=== PATIENT | male | born 1945 | race Caucasian/White ===

== ENCOUNTER 2019-03-11 17:06 | Inpatient (IN) | payer MEDICARE ==
[~2019-03-11] VITALS: Ht 180.3 cm; Wt 63.5 kg
[2019-03-11 17:07] VITALS: BP 137/86
--- NOTE | 2019-03-11 17:07 | NUR ---
ED Nurse Note: Patient nigel STONER from home c/o uncomfortability with his catracts, states that he does have a memorial adviser appointment on thursday but wanted to come today to relieve some of his questions. complains of no pain at this time, visual acuity unable to do so, states that he is unable to see within 20 feet however can picture colors and track staff. patient is alert and oriented x4. states that he is a type 2 diabetic however has not taken his meds for 1 year
[2019-03-11 17:58] LABS: APPEARANCE,URINE CLEAR; BILIRUBIN, URINE NEGATIVE (NEGATIVE); COLOR,URINE PALE YELLOW; GLUCOSE, URINE (UA) NEGATIVE (NEGATIVE); KETONES,URINE NEGATIVE (NEGATIVE); LEUKOCYTE ESTERASE ,URINE 1+ (NEGATIVE); NITRITE,URINE NEGATIVE (NEGATIVE); PH,URINE 7 (4.5-8.0); PROTEIN,URINE 2+ (NEGATIVE); UROBILINOGEN,URINE 1 MG/DL (0.0-1.0)
[2019-03-11 18:01] LABS: BASOPHILS % (AUTO) 0.6 % (0.0-2.0); EOSINOPHILS % (AUTO) 1.5 % (0.0-3.0); HEMOGLOBIN 14.1 G/DL (14.2-18.0); LYMPHOCYTES % (AUTO) 30.6 % (20.0-45.0); MEAN CORPUSCULAR VOLUME 90 FL (80-99); MONOCYTES % (AUTO) 8.7 % (1.0-10.0); NEUTROPHILS % (AUTO) 58.6 % (45.0-75.0); PLATELET COUNT 142 K/UL (150-450); RED BLOOD COUNT 4.46 M/UL (4.70-6.10); RED CELL DISTRIBUTION WIDTH 11.1 % (11.6-14.8); WHITE BLOOD COUNT 11.2 K/UL (4.8-10.8)
[2019-03-11 18:10] LABS: ANION GAP 14 mmol/L (5-15); BLOOD UREA NITROGEN 31 mg/dL (7-18); CALCIUM 7.8 MG/DL (8.5-10.1); CARBON DIOXIDE 24 MMOL/L (21-32); CHLORIDE 109 MMOL/L (98-107); CREATININE 2.4 MG/DL (0.55-1.30); POTASSIUM 4.3 MMOL/L (3.5-5.1); SODIUM 147 MMOL/L (136-145)
[2019-03-11 18:20] LABS: ALANINE AMINOTRANSFERASE 48 U/L (12-78); ALBUMIN 3.6 G/DL (3.4-5.0); ALBUMIN/GLOBULIN RATIO 1.1 (1.0-2.7); ALKALINE PHOSPHATASE 219 U/L (46-116); ASPARTATE AMINO TRANSFERASE 38 U/L (15-37); BILIRUBIN,TOTAL 0.6 MG/DL (0.2-1.0)
--- NOTE | 2019-03-11 18:26 | Diagnostic Imaging Report ---
History: H/A Exam: CT HEAD Without Contrast Technique more: CTDI is 70.38 mGy and DLP is 1509 mGy-cm. Technique more: One or more of the following dose reduction techniques were used: automated exposure control, adjustment of the mA and/or kV according to patient size, use of iterative reconstruction technique. Comparison: None available FINDINGS: No intracranial hemorrhage, mass effect or CT evidence of acute infarct. The ventricles are within limits and midline. The visualized paranasal sinuses, mastoids and orbits appear within limits. IMPRESSION: No intracranial hemorrhage, mass effect or CT evidence of acute infarct.
[2019-03-11] MEDS ORDERED: NKM (18:41)
--- NOTE | 2019-03-11 19:13 | NUR ---
HAND-OFF: Report given to LEI Agarwal.
--- NOTE | 2019-03-11 19:22 | Emergency Room Report ---
History of Present Illness General Chief Complaint: Eye Problems Source: Patient Present Illness HPI 73-year-old male presents ED for evaluation. Brought in by EMS. States that he has had sudden decrease in his visual acuity over the last 10 days. decreasing visual acuity over the last 10 days. Has cataracts. Is scheduled for surgery consultation next week. States that because of his vision he has been bumping around in his apartment and falling. States very often he is in bed for days. Lives alone. Denies any headache. Denies any eye pain. Denies any chest pain or shortness of breath. No other aggravating relieving factors. Denies any other associated symptoms Allergies: Coded Allergies: No Known Allergies (Unverified , 03/11/19) Patient History Past Medical History: DM, other - cataracts Past Surgical History: none Pertinent Family History: none Social History: Denies: smoking, alcohol use, drug use Immunizations: UTD Reviewed Nursing Documentation: PMH: Agreed; PSxH: Agreed Nursing Documentation-PMH Past Medical History: No History, Except For Hx Diabetes: Yes - Type 2 diabetes Review of Systems All Other Systems: negative except mentioned in HPI Physical Exam Vital Signs Date Time Temp Pulse Resp B/P (MAP) Pulse Ox O2 Delivery O2 Flow Rate FiO2 03/11/19 17:02 98.2 96 18 137/86 (103) 98 Room Air Sp02 EP Interpretation: reviewed, normal General Appearance: no apparent distress, alert, GCS 15, non-toxic, thin Head: normocephalic, atraumatic Eyes: bilateral eye other - cataracts ENT: hearing grossly normal, normal pharynx, no angioedema, normal voice Neck: full range of motion, supple/symm/no masses Respiratory: chest non-tender, lungs clear, normal breath sounds, speaking full sentences Cardiovascular #1: regular rate, rhythm, no edema Cardiovascular #2: 2+ carotid (R), 2+ carotid (L), 2+ radial (R), 2+ radial (L) , 2+ dorsalis pedis (R), 2+ dorsalis pedis (L) Gastrointestinal: normal bowel sounds, non tender, soft, non-distended, no guarding, no rebound Rectal: deferred Genitourinary: normal inspection, no CVA tenderness Musculoskeletal: back normal, gait/station normal, normal range of motion, non- tender Neurologic: alert, oriented x3, responsive, motor strength/tone normal, sensory intact, speech normal Psychiatric: judgement/insight normal, memory normal, anxious Reflexes: 3+ bicep (R), 3+ bicep (L), 3+ tricep (R), 3+ tricep (L), 3+ knee (R) , 3+ knee (L) Skin: no rash Lymphatic: no adenopathy Medical Decision Making Diagnostic Impression: Primary Impression: Frequent falls Additional Impressions: Hypernatremia Dehydration Cataracts, bilateral Qualified Codes: H26.9 - Unspecified cataract ER Course Hospital Course 73-year-old male presents ED with repeated falls, feeling weak. Decreased visual acuity due to cataracts Differential diagnoses include: dehydration, intracranial injury, arrythmia Clinical course Patient placed on stretcher. on training development specialist. After initial history and physical I ordered labs, EKG, IVFs, CT Brain labs reviewed- no leukocytosis, hemoglobin/hematocrit ok, odium elevated, BUN/ creatinine elevated, UDS negative EKG- NSR, no acute ischemic changes interpreted by me CT brain-unremarkable Case discussed with Dr. Cruz and he agreed to accept the patient to his service for further care and support I. I feel this is a highly complex case requiring extensive working including EKG/Rhythm strip, Xray/CT/US, Blood/urine lab work, repeat exams while in ED, and administration of strong opiates/narcotics for pain control, admission to hospital or close patient follow up. Diagnosis - frequent falls, hypernatremia, dehydration, bilateral cataracts admitted to telemetry in serious condition Labs Test 03/11/19 17:30 03/11/19 17:38 White Blood Count 11.2 K/UL (4.8-10.8) Red Blood Count 4.46 M/UL (4.70-6.10) Hemoglobin 14.1 G/DL (14.2-18.0) Hematocrit 40.0 % (42.0-52.0) Mean Corpuscular Volume 90 FL (80-99) Mean Corpuscular Hemoglobin 31.7 PG (27.0-31.0) Mean Corpuscular Hemoglobin Concent 35.3 G/DL (32.0-36.0) Red Cell Distribution Width 11.1 % (11.6-14.8) Platelet Count 142 K/UL (150-450) Mean Platelet Volume 7.6 FL (6.5-10.1) Neutrophils (%) (Auto) 58.6 % (45.0-75.0) Lymphocytes (%) (Auto) 30.6 % (20.0-45.0) Monocytes (%) (Auto) 8.7 % (1.0-10.0) Eosinophils (%) (Auto) 1.5 % (0.0-3.0) Basophils (%) (Auto) 0.6 % (0.0-2.0) Sodium Level 147 MMOL/L (136-145) Potassium Level 4.3 MMOL/L (3.5-5.1) Chloride Level 109 MMOL/L (98-107) Carbon Dioxide Level 24 MMOL/L (21-32) Anion Gap 14 mmol/L (5-15) Blood Urea Nitrogen 31 mg/dL (7-18) Creatinine 2.4 MG/DL (0.55-1.30) Estimat Glomerular Filtration Rate mL/min (>60) Glucose Level 122 MG/DL (74-106) Calcium Level 7.8 MG/DL (8.5-10.1) Total Bilirubin 0.6 MG/DL (0.2-1.0) Aspartate Amino Transf (AST/SGOT) 38 U/L (15-37) Alanine Aminotransferase (ALT/SGPT) 48 U/L (12-78) Alkaline Phosphatase 219 U/L (46-116) Total Protein 7.0 G/DL (6.4-8.2) Albumin 3.6 G/DL (3.4-5.0) Globulin 3.4 g/dL Albumin/Globulin Ratio 1.1 (1.0-2.7) Salicylates Level 1.3 ug/mL (2.8-20) Acetaminophen Level < 2 MCG/ML (10-30) Serum Alcohol < 3 mg/dL Urine Color Pale yellow Urine Appearance Clear Urine pH 7 (4.5-8.0) Urine Specific [place] 1.005 (1.005-1.035) Urine Protein 2+ (NEGATIVE) Urine Glucose (UA) Negative (NEGATIVE) Urine Ketones Negative (NEGATIVE) Urine Blood Negative (NEGATIVE) Urine Nitrite Negative (NEGATIVE) Urine Bilirubin Negative (NEGATIVE) Urine Urobilinogen 1 MG/DL (0.0-1.0) Urine Leukocyte Esterase 1+ (NEGATIVE) Urine RBC 0-2 /HPF (0 - 0) Urine WBC 0-2 /HPF (0 - 0) Urine Squamous Epithelial Cells Occasional /LPF Urine Bacteria None /HPF (NONE) Urine Opiates Screen Negative (NEGATIVE) Urine Barbiturates Screen Negative (NEGATIVE) Phencyclidine (PCP) Screen Negative (NEGATIVE) Urine Amphetamines Screen Negative (NEGATIVE) Urine Benzodiazepines Screen Negative (NEGATIVE) Urine Cocaine Screen Negative (NEGATIVE) Urine Marijuana (THC) Screen Negative (NEGATIVE) EKG Diagnostic Results Rate: normal Rhythm: NSR ST Segments: no acute changes ASA given to the pt in ED: No Rhythm Strip Diag. Results EP Interpretation: yes Rhythm: NSR, no PVC's, no ectopy CT/MRI/US Diagnostic Results CT/MRI/US Diagnostic Results : Imaging Test Ordered: CT Head Impression no acute process Last Vital Signs Date Time Temp Pulse Resp B/P (MAP) Pulse Ox O2 Delivery O2 Flow Rate FiO2 03/11/19 17:07 98.2 96 18 137/86 98 Room Air Status: improved Disposition: ADMITTED INPATIENT Condition: Serious Referrals: NON PHYSICIAN (PCP) Po Hannon MD Mar 11, 2019 19:22
[2019-03-11 20:45] VITALS: BP_SYST 130; BP_SYST 137; BP_DIAS 78; BP_DIAS 86
--- NOTE | 2019-03-11 20:45 | NUR ---
NURSE NOTES: Received pt from ED via gurney. Pt transferred to without any incident. front desk monitor is in placed, IV site intact, asymptomatic, and patent. Bed is in the lowest position and locked. Call light within reach. Pt is on fall precaution due to cataracts in both eyes. Belongings list checked and accounted. No signs/symptoms of acute distress noted at this time. Will call Dr. Mari for admission orders
--- NOTE | 2019-03-11 20:45 | NUR ---
ED Nurse Note: Patient was admited to Tele due to renal insuficiency, generalized weakness, dehydration. Patient AAO x4, VSS at this time. Patient was transfered to the unit via gurney, by ACLS protocol, with all belongings.
--- NOTE | 2019-03-11 21:55 | NUR ---
NURSE NOTES: Contacted Dr. [facility] for admission order. Awaiting call back from the on-call
--- NOTE | 2019-03-11 22:25 | NUR ---
NURSE NOTES: Received orders from Dr. Martinez. Will note and carry out.
[2019-03-11] MEDS ORDERED: Docusate 100mg cap ORAL PRN (22:45)
[2019-03-12] VITALS: BP 116/70
[2019-03-12 04:00] VITALS: BP 120/80
[2019-03-12] MEDS: NovoLOG Insulin Flexpen SUBQ SCH ×4 (06:24→21:00)
--- NOTE | 2019-03-12 07:10 | NUR ---
NURSE NOTES: Report received from Nataliya ODOM. Pt. AOx4. In RA. Having breakfast. Denies any pain or SOB. IV running 1/2 NS @ 75. Bed on lowest position, side rails upx2, brakes engaged. Call light within easy reach.
--- NOTE | 2019-03-12 07:52 | NUR ---
HAND-OFF: Report given to LEI Jaimes.
[2019-03-12 08:00] VITALS: BP 120/70
[2019-03-12 08:14] LABS: HEMATOCRIT 37.6 % (42.0-52.0); HEMOGLOBIN 12.3 G/DL (14.2-18.0); MEAN CORPUSCULAR VOLUME 97 FL (80-99); PLATELET COUNT 117 K/UL (150-450); RED BLOOD COUNT 3.88 M/UL (4.70-6.10); RED CELL DISTRIBUTION WIDTH 11.6 % (11.6-14.8); WHITE BLOOD COUNT 8.6 K/UL (4.8-10.8)
[2019-03-12 08:28] LABS: ANION GAP 12 mmol/L (5-15); BLOOD UREA NITROGEN 29 mg/dL (7-18); CALCIUM 7.7 MG/DL (8.5-10.1); CARBON DIOXIDE 22 MMOL/L (21-32); CHLORIDE 113 MMOL/L (98-107); CREATININE 2.3 MG/DL (0.55-1.30); PHOSPHORUS 3.3 MG/DL (2.5-4.9); POTASSIUM 4.4 MMOL/L (3.5-5.1); SODIUM 147 MMOL/L (136-145)
--- NOTE | 2019-03-12 09:08 | History and Physical ---
History of Present Illness General Date patient seen: Mar 12, 2019 Reason for Hospitalization: Eye Problems, found down Present Illness HPI 73 year old male, pleasant brought to the ED by EMS, he says he was found down. 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 He has been having frequent falls due to his poor vision. He lives alone. He has no complaints. Denies cp, sob, palps, eye pain, weakness, decreased sensation, headache, abdominal pain, n/v/d. He lives alone, never and doesn't have children. He used to take 4 medications but stopped all of them 4 years ago. He denies head trauma or any pain anywhere. He often spends many days in bed. He is looking forward to his surgery to be able to see again. Past Medical History: DM, cataracts Past Surgical History: 2 hernias as a child Family History: Father: DM Social History: Denies: smoking, alcohol use, drug use. He used to cárdenas but quit PCP: Rogelio Torres Allergies: Coded Allergies: No Known Allergies (Unverified , 03/11/19) Medication History Scheduled No Known Medications* (NKM - No Known Medications*), 0 ., (Reported) Patient History Healthcare decision maker Resuscitation status Full Code Advanced Directive on File Review of Systems All Other Systems: negative except mentioned in HPI ROS Narrative 12 systems review of ssytems negative except as in HPI Physical Exam Physical Exam Narrative General Appearance: no apparent distress, alert and awake, foul smelling HEENT: normocephalic, atraumatic, bilateral eyes: severe cataracts Neck: full range of motion, supple, no jvd Respiratory: chest non-tender, lungs clear, normal breath sounds, speaking full sentences Cardiovascular: regular rate, rhythm, no m/r/g, intact pulses, no edema Gastrointestinal: normal bowel sounds, non tender, soft, non-distended, no guarding, no rebound Genitourinary: no CVA tenderness Musculoskeletal: normal range of motion Neurologic: alert, oriented x3, responsive, motor strength/tone normal, sensory intact, speech normal, gait normal, reflexes normal Psychiatric: judgement/insight normal Skin: no rash or ulcers Last 24 Hour Vital Signs Date Time Temp Pulse Resp B/P (MAP) Pulse Ox O2 Delivery O2 Flow Rate FiO2 03/12/19 04:00 97.6 79 18 120/80 (93) 96 03/12/19 04:00 72 03/12/19 00:03 Room Air 03/12/19 00:00 97.7 82 18 116/70 (85) 96 03/12/19 00:00 80 03/11/19 21:15 81 03/11/19 20:45 98.4 92 20 127/76 99 Room Air 03/11/19 20:45 96.8 81 19 130/78 (95) 99 03/11/19 20:45 98.2 96 18 137/86 98 Room Air 03/11/19 17:07 98.2 96 18 137/86 98 Room Air 03/11/19 17:02 98.2 96 18 137/86 (103) 98 Room Air Intake and Output 03/11/19 03/12/19 19:00 07:00 Intake Total 240 ml Balance 240 ml Intake Oral 240 ml # Voids 3 Laboratory Tests Test 03/11/19 17:30 03/11/19 17:38 03/12/19 06:43 White Blood Count 11.2 K/UL (4.8-10.8) H 8.6 K/UL (4.8-10.8) Red Blood Count 4.46 M/UL (4.70-6.10) L 3.88 M/UL (4.70-6.10) L Hemoglobin 14.1 G/DL (14.2-18.0) L 12.3 G/DL (14.2-18.0) L Hematocrit 40.0 % (42.0-52.0) L 37.6 % (42.0-52.0) L Mean Corpuscular Volume 90 FL (80-99) 97 FL (80-99) Mean Corpuscular Hemoglobin 31.7 PG (27.0-31.0) H 31.7 PG (27.0-31.0) H Mean Corpuscular Hemoglobin Concent 35.3 G/DL (32.0-36.0) 32.7 G/DL (32.0-36.0) Red Cell Distribution Width 11.1 % (11.6-14.8) L 11.6 % (11.6-14.8) Platelet Count 142 K/UL (150-450) L 117 K/UL (150-450) L Mean Platelet Volume 7.6 FL (6.5-10.1) 7.7 FL (6.5-10.1) Neutrophils (%) (Auto) 58.6 % (45.0-75.0) % (45.0-75.0) Lymphocytes (%) (Auto) 30.6 % (20.0-45.0) % (20.0-45.0) Monocytes (%) (Auto) 8.7 % (1.0-10.0) % (1.0-10.0) Eosinophils (%) (Auto) 1.5 % (0.0-3.0) % (0.0-3.0) Basophils (%) (Auto) 0.6 % (0.0-2.0) % (0.0-2.0) Sodium Level 147 MMOL/L (136-145) H 147 MMOL/L (136-145) H Potassium Level 4.3 MMOL/L (3.5-5.1) 4.4 MMOL/L (3.5-5.1) Chloride Level 109 MMOL/L (98-107) H 113 MMOL/L (98-107) H Carbon Dioxide Level 24 MMOL/L (21-32) 22 MMOL/L (21-32) Anion Gap 14 mmol/L (5-15) 12 mmol/L (5-15) Blood Urea Nitrogen 31 mg/dL (7-18) H 29 mg/dL (7-18) H Creatinine 2.4 MG/DL (0.55-1.30) H 2.3 MG/DL (0.55-1.30) H Estimat Glomerular Filtration Rate mL/min (>60) mL/min (>60) Glucose Level 122 MG/DL (74-106) H 114 MG/DL (74-106) H Calcium Level 7.8 MG/DL (8.5-10.1) L 7.7 MG/DL (8.5-10.1) L Total Bilirubin 0.6 MG/DL (0.2-1.0) Aspartate Amino Transf (AST/SGOT) 38 U/L (15-37) H Alanine Aminotransferase (ALT/SGPT) 48 U/L (12-78) Alkaline Phosphatase 219 U/L (46-116) H Total Protein 7.0 G/DL (6.4-8.2) Albumin 3.6 G/DL (3.4-5.0) Globulin 3.4 g/dL Albumin/Globulin Ratio 1.1 (1.0-2.7) Salicylates Level 1.3 ug/mL (2.8-20) L Acetaminophen Level < 2 MCG/ML (10-30) L Serum Alcohol < 3 mg/dL Urine Color Pale yellow Urine Appearance Clear Urine pH 7 (4.5-8.0) Urine Specific [place] 1.005 (1.005-1.035) Urine Protein 2+ (NEGATIVE) H Urine Glucose (UA) Negative (NEGATIVE) Urine Ketones Negative (NEGATIVE) Urine Blood Negative (NEGATIVE) Urine Nitrite Negative (NEGATIVE) Urine Bilirubin Negative (NEGATIVE) Urine Urobilinogen 1 MG/DL (0.0-1.0) H Urine Leukocyte Esterase 1+ (NEGATIVE) H Urine RBC 0-2 /HPF (0 - 0) H Urine WBC 0-2 /HPF (0 - 0) Urine Squamous Epithelial Cells Occasional /LPF Urine Bacteria None /HPF (NONE) Urine Opiates Screen Negative (NEGATIVE) Urine Barbiturates Screen Negative (NEGATIVE) Phencyclidine (PCP) Screen Negative (NEGATIVE) Urine Amphetamines Screen Negative (NEGATIVE) Urine Benzodiazepines Screen Negative (NEGATIVE) Urine Cocaine Screen Negative (NEGATIVE) Urine Marijuana (THC) Screen Negative (NEGATIVE) Neutrophils % (Manual) Pending Lymphocytes % (Manual) Pending Platelet Estimate Pending Platelet Morphology Pending Phosphorus Level 3.3 MG/DL (2.5-4.9) Magnesium Level 1.4 MG/DL (1.8-2.4) L Vitamin B12 Level Pending Vitamin D 25-Hydroxy Pending 25-Hydroxy Vitamin D2 Pending 25-Hydroxy Vitamin D3 Pending Folate Pending Thyroid Stimulating Hormone (TSH) 1.959 uiU/mL (0.358-3.740) EKG personally reviewed by me CT head negative for any acute process UA: unremarkable Height (Feet): 5 Height (Inches): 11.00 Weight (Pounds): 140 Medications Current Medications Medications (Trade) Dose Ordered Sig/[place] Route PRN Reason Start Time Stop Time Status Last Admin Dose Admin Acetaminophen (Tylenol) 650 mg Q4H PRN ORAL Mild Pain/Temp > 100.5 03/11/19 22:45 04/10/19 22:44 Dextrose (Dextrose 50%) 25 ml Q30M PRN IV Hypoglycemia 03/11/19 22:45 04/10/19 22:44 Dextrose (Dextrose 50%) 50 ml Q30M PRN IV Hypoglycemia 03/11/19 22:45 04/10/19 22:44 Docusate Sodium (Colace) 100 mg TWICE A DAY PRN ORAL CONSTIPATION 03/11/19 22:45 04/10/19 22:44 Heparin Sodium (Porcine) (Heparin 5000 units/ml) 5,000 units EVERY 12 HOURS SUBQ 03/12/19 09:00 04/11/19 08:59 UNV Insulin Aspart (NovoLOG) BEFORE MEALS AND HS SUBQ 03/12/19 06:30 04/11/19 06:29 Ondansetron HCl (Zofran) 4 mg Q6H PRN IVP Nausea & Vomiting 03/11/19 22:45 04/10/19 22:44 Sodium Chloride 1,000 ml @ 75 mls/hr [id number] IV 03/11/19 22:45 04/10/19 22:44 03/11/19 23:36 Assessment/Plan Problem List: (1) Hypernatremia ICD Codes: E87.0 - Hyperosmolality and hypernatremia SNOMED: 273033586 (2) Frequent falls ICD Codes: R29.6 - Repeated falls SNOMED: 350896606 (3) Cataracts, bilateral ICD Codes: H26.9 - Unspecified cataract SNOMED: 60351237 Qualifiers: Qualified Codes: H26.9 - Unspecified cataract (4) Dehydration ICD Codes: E86.0 - Dehydration SNOMED: 49916640 (5) SUGEY (acute kidney injury) ICD Codes: N17.9 - Acute kidney failure, unspecified SNOMED: 6814584, 24005136 (6) Transaminitis ICD Codes: R74.0 - Nonspecific elevation of levels of transaminase and lactic acid dehydrogenase [LDH] SNOMED: 832515994, 983155820 (7) Thrombocytopenia ICD Codes: D69.6 - Thrombocytopenia, unspecified SNOMED: 167303217 Status: stable Assessment/Plan: 73 year old male, with severe cataracts, poor vision, and frequent falls, found down, admitted for dehydration, hypernatremia, SUGEY, transaminitis and thrombocytopenia. Unsafe discharge due to frequent falls and severe bilateral cataracts 1.Hypernatremia and dehydration Continue 1/2 NS At 75 ml/hr Monitor serum sodium 2. SUGEY vs SUGEY on preexisting CKD Monitor serum creatinine. If no improvement after hydration. Then urine lytes, renal US and nephrology consult. 3. Transaminitis- mild, monitor. 4. Thrombocytopenia- monitor, can continue heparin for now. check B12, folate, TSH 5. Frequent falls: Due to cataracts. CT head negative PT evaluation SNF on disposition Check vitamin D levels 6. Mild leukocytosis- Likely reactive. follow up after hydration 7. ?DM. Check HbA1c Code: full code Disposition: SNF Diet: Cardiac DVT pxx; subq heparin , scd boots GI ppx; none I spent 70 minutes on this encounter. 50% spent on counselling and care coordination. Time of this note may not reflect time of encounter. Anselmo Campbell M.D. Mar 12, 2019 09:08
[2019-03-12] MEDS: Heparin 5000 units/ml inj SUBQ SCH ×2 (10:00→21:00)
[2019-03-12 12:00] VITALS: BP 112/67
--- NOTE | 2019-03-12 14:50 | NUR ---
PT Note Patient states that he does not need any physical therapy. He does not want to have any PT at this time. 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 Need teleservices representative eval for placement or set-up of assistance at home. Addendum: 03/12/19 at 1451 by MACEY QIU PT Amended: Links added.
[2019-03-12 16:00] VITALS: BP 119/77
--- NOTE | 2019-03-12 19:30 | NUR ---
NURSE NOTES: Received pt and report from LEI Jaimes. Observed pt resting in bed with both eyes open. surveillance monitor is in placed, IV site intact, asymptomatic and patent. Bed is in the lowest position and locked. Call light within reach. No signs/symptoms of acute distress noted at this time. Pt is on fall precaution due to cataracts in both eyes. Will continue plan of care.
--- NOTE | 2019-03-12 19:37 | NUR ---
HAND-OFF: Report given to LEI An. Pt. in stable condition. Plan of care communicated.
[2019-03-12 20:00] VITALS: BP 119/60
[2019-03-13] VITALS: BP 124/63
[2019-03-13 04:00] VITALS: BP 116/69
[2019-03-13] MEDS: NovoLOG Insulin Flexpen SUBQ SCH ×4 (06:30→21:00)
[2019-03-13 07:08] LABS: BASOPHILS % (AUTO) 0.3 % (0.0-2.0); EOSINOPHILS % (AUTO) 1.6 % (0.0-3.0); LYMPHOCYTES % (AUTO) 23.7 % (20.0-45.0); MEAN CORPUSCULAR VOLUME 95 FL (80-99); MONOCYTES % (AUTO) 8.3 % (1.0-10.0); NEUTROPHILS % (AUTO) 66.2 % (45.0-75.0); PLATELET COUNT 115 K/UL (150-450); RED BLOOD COUNT 3.77 M/UL (4.70-6.10); RED CELL DISTRIBUTION WIDTH 11.6 % (11.6-14.8); WHITE BLOOD COUNT 9.5 K/UL (4.8-10.8)
[2019-03-13 07:19] LABS: ALANINE AMINOTRANSFERASE 35 U/L (12-78); ALBUMIN 2.9 G/DL (3.4-5.0); ALKALINE PHOSPHATASE 185 U/L (46-116); ANION GAP 7 mmol/L (5-15); ASPARTATE AMINO TRANSFERASE 23 U/L (15-37); BILIRUBIN,TOTAL 0.4 MG/DL (0.2-1.0); BLOOD UREA NITROGEN 29 mg/dL (7-18); CALCIUM 8.1 MG/DL (8.5-10.1); CARBON DIOXIDE 23 MMOL/L (21-32); CHLORIDE 113 MMOL/L (98-107); CREATININE 2.6 MG/DL (0.55-1.30); POTASSIUM 4.7 MMOL/L (3.5-5.1); SODIUM 143 MMOL/L (136-145)
--- NOTE | 2019-03-13 07:25 | NUR ---
NURSE NOTES: Report received from LEI An. Pt. AOx4. In RA. Denies any pain or SOB. IV running 1/2 NS @75, site intact. Called lab to f/u on urine culture results, to be posted today. Bed on lowest position, side rails upx2, brakes engaged. Call light within easy reach.
--- NOTE | 2019-03-13 07:43 | NUR ---
HAND-OFF: Report given to LEI Jaimes.
[2019-03-13 08:00] VITALS: BP 111/62
[2019-03-13] MEDS: Heparin 5000 units/ml inj SUBQ SCH (09:00)
--- NOTE | 2019-03-13 10:53 | General Progress Note ---
Assessment/Plan Problem List: (1) Hypernatremia ICD Codes: E87.0 - Hyperosmolality and hypernatremia SNOMED: 273012803 (2) Frequent falls ICD Codes: R29.6 - Repeated falls SNOMED: 652157071 (3) Cataracts, bilateral ICD Codes: H26.9 - Unspecified cataract SNOMED: 43580473 Qualifiers: Qualified Codes: H26.9 - Unspecified cataract (4) Dehydration ICD Codes: E86.0 - Dehydration SNOMED: 89265002 (5) SUGEY (acute kidney injury) ICD Codes: N17.9 - Acute kidney failure, unspecified SNOMED: 7432737, 11450688 (6) Transaminitis ICD Codes: R74.0 - Nonspecific elevation of levels of transaminase and lactic acid dehydrogenase [LDH] SNOMED: 298138662, 600070921 (7) Thrombocytopenia ICD Codes: D69.6 - Thrombocytopenia, unspecified SNOMED: 901348928 (8) B12 deficiency ICD Codes: E53.8 - Deficiency of other specified B group vitamins SNOMED: 528493472 Status: stable Assessment/Plan: 73 year old male, with severe cataracts, poor vision, and frequent falls, found down, admitted for dehydration, hypernatremia, SUGEY possibly on CKD, transaminitis and thrombocytopenia. Unsafe discharge due to frequent falls and severe bilateral cataracts 1.Hypernatremia and dehydration. Resolved Continue 1/2 NS At 75 ml/hr Monitor serum sodium 2. SUGEY vs SUGEY on preexisting CKD Monitor serum creatinine. urine lytes, albumin, creatinine, and renal US and nephrology consult. Creatinine remains without improvement 3. Transaminitis- mild. Resolved 4. Thrombocytopenia-DC hepatin. ? Due to B2 deficiency and nutritional check B12 5. Frequent falls: Due to cataracts. CT head negative PT evaluation SNF on disposition Check vitamin D levels 6. Mild leukocytosis- Likely reactive. no sign of infection 7. Vitamin b12 deficiency. Start 1000mcg IM daily for 7 days. then weekly. Code: full code Disposition: SNF Diet: Cardiac DVT pxx; subq heparin , scd boots GI ppx; none I spent 40 minutes on this encounter. 50% spent on counselling and care coordination. Time of this note may not reflect time of encounter. Subjective Date patient seen: Mar 13, 2019 ROS Limited/Unobtainable: No Constitutional: Denies: no symptoms, chills, diaphoresis, fever, malaise, weakness, other HEENT: Denies: no symptoms, eye pain, blurred vision, tearing, double vision, ear pain, ear discharge, nose pain, nose congestion, throat pain, throat swelling, mouth pain, mouth swelling, other Cardiovascular: Denies: no symptoms, chest pain, edema, irregular heart rate, lightheadedness, palpitations, syncope, other Respiratory: Denies: no symptoms, cough, orthopnea, shortness of breath, SOB with excertion, SOB at rest, sputum, stridor, wheezing, other Gastrointestinal/Abdominal: Denies: no symptoms, abdomen distended, abdominal pain, black stools, tarry stools, blood in stool, constipated, diarrhea, difficulty swallowing, nausea, poor appetite, poor fluid intake, rectal bleeding , vomiting, other Genitourinary: Denies: no symptoms, burning, discharge, frequency, flank pain, hematuria, incontinence, pain, urgency, other Neurologic/Psychiatric: Denies: no symptoms, anxiety, depressed, emotional problems, headache, numbness, paresthesia, pre-existing deficit, seizure, tingling, tremors, weakness, other Endocrine: Denies: no symptoms, excessive sweating, flushing, intolerance to cold, intolerance to heat, increased hunger, increased thirst, increased urine, unexplained weight gain, unexplained weight loss, other Hematologic/Lymphatic: Denies: no symptoms, anemia, easy bleeding, easy bruising, other Allergies: Coded Allergies: No Known Allergies (Unverified , 03/11/19) Subjective seen and examined at bedside. agitated Wants to make it to his eye appointment tomorrow Objective Last 24 Hour Vital Signs Date Time Temp Pulse Resp B/P (MAP) Pulse Ox O2 Delivery O2 Flow Rate FiO2 03/13/19 09:00 Room Air 03/13/19 08:00 84 03/13/19 08:00 97.9 86 20 111/62 (78) 96 03/13/19 04:00 89 03/13/19 04:00 97.9 86 20 116/69 (85) 100 03/13/19 00:00 97.9 85 18 124/63 (83) 98 03/13/19 00:00 78 03/12/19 21:00 Room Air 03/12/19 20:00 81 9/7/19 20:00 97.3 88 19 119/60 (79) 99 03/12/19 16:00 96.4 87 18 119/77 (91) 97 03/12/19 16:00 79 03/12/19 12:00 97.9 82 20 112/67 (82) 98 03/12/19 12:00 79 Intake and Output 03/12/19 03/13/19 19:00 07:00 Intake Total 980 ml Output Total 800 ml 900 ml Balance 180 ml -900 ml Intake Oral 480 ml IV Total 500 ml Output Urine Total 800 ml 900 ml # Voids 2 2 Laboratory Tests 03/13/19 06:10: White Blood Count 9.5, Red Blood Count 3.77L, Hemoglobin 12.0L, Hematocrit 36.0L , Mean Corpuscular Volume 95, Mean Corpuscular Hemoglobin 31.8H, Mean Corpuscular Hemoglobin Concent 33.4, Red Cell Distribution Width 11.6, Platelet Count 115L, Mean Platelet Volume 8.2, Neutrophils (%) (Auto) 66.2, Lymphocytes ( %) (Auto) 23.7, Monocytes (%) (Auto) 8.3, Eosinophils (%) (Auto) 1.6, Basophils (%) (Auto) 0.3, Sodium Level 143, Potassium Level 4.7, Chloride Level 113H, Carbon Dioxide Level 23, Anion Gap 7, Blood Urea Nitrogen 29H, Creatinine 2.6H, Estimat Glomerular Filtration Rate , Glucose Level 129H, Hemoglobin A1c 5.8, Calcium Level 8.1L, Total Bilirubin 0.4, Aspartate Amino Transf (AST/SGOT) 23, Alanine Aminotransferase (ALT/SGPT) 35, Alkaline Phosphatase 185H, Total Protein 5.7L, Albumin 2.9L, Globulin 2.8, Albumin/Globulin Ratio 1.0 Height (Feet): 5 Height (Inches): 11.00 Weight (Pounds): 140 Objective General Appearance: no apparent distress, alert and awake, foul smelling HEENT: normocephalic, atraumatic, bilateral eyes: severe cataracts Neck: full range of motion, supple, no jvd Respiratory: chest non-tender, lungs clear, normal breath sounds, speaking full sentences Cardiovascular: regular rate, rhythm, no m/r/g, intact pulses, no edema Gastrointestinal: normal bowel sounds, non tender, soft, non-distended, no guarding, no rebound Genitourinary: no CVA tenderness Musculoskeletal: normal range of motion Neurologic: alert, oriented x3, responsive, motor strength/tone normal, sensory intact, speech normal, gait normal, reflexes normal Psychiatric: judgement/insight normal Skin: no rash or ulcers Anselmo Campbell M.D. Mar 13, 2019 10:53
[2019-03-13 12:00] VITALS: BP 114/65
--- NOTE | 2019-03-13 13:27 | Consultation ---
History of Present Illness General Date patient seen: Mar 13, 2019 Chief Complaint: Eye Problems Present Illness HPI 73 year old male with past medical history o DM,brought to the ED by EMS, he says he was found down. 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 He has been having frequent falls due to his poor vision. He lives alone. He has no complaints. Denies cp, sob, palps, eye pain, weakness, decreased sensation, headache, abdominal pain, n/v/d He used to take 4 medications but stopped all of them 4 years ago. He denies head trauma or any pain anywhere. H. He denies any history of renal disease. on questioning he gets agitated when asked about history of renal issues. He denies NSAID use. Allergies: Coded Allergies: No Known Allergies (Unverified , 03/11/19) Medication History Scheduled No Known Medications* (NKM - No Known Medications*), 0 ., (Reported) Patient History Healthcare decision maker Resuscitation status Full Code Advanced Directive on File Review of Systems All Other Systems: negative except mentioned in HPI Physical Exam General Appearance: WD/WN, no apparent distress HEENT: normocephalic, atraumatic, other - + bilateral cataracts Neck: non-tender, normal alignment Respiratory/Chest: chest wall non-tender, lungs clear, normal breath sounds Cardiovascular/Chest: normal peripheral pulses, normal rate, regular rhythm Abdomen: normal bowel sounds, non tender, soft Extremities: normal range of motion, non-tender, normal inspection 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 normal, alert, oriented x 3 Last 24 Hour Vital Signs Date Time Temp Pulse Resp B/P (MAP) Pulse Ox O2 Delivery O2 Flow Rate FiO2 03/13/19 12:00 97.6 88 20 114/65 (81) 97 03/13/19 12:00 94 03/13/19 09:00 Room Air 03/13/19 08:00 84 03/13/19 08:00 97.9 86 20 111/62 (78) 96 03/13/19 04:00 89 03/13/19 04:00 97.9 86 20 116/69 (85) 100 03/13/19 00:00 97.9 85 18 124/63 (83) 98 03/13/19 00:00 78 03/12/19 21:00 Room Air 03/12/19 20:00 81 03/12/19 20:00 97.3 88 19 119/60 (79) 99 03/12/19 16:00 96.4 87 18 119/77 (91) 97 03/12/19 16:00 79 Intake and Output 03/12/19 03/13/19 19:00 07:00 Intake Total 980 ml Output Total 800 ml 900 ml Balance 180 ml -900 ml Intake Oral 480 ml IV Total 500 ml Output Urine Total 800 ml 900 ml # Voids 2 2 Laboratory Tests Test 03/13/19 06:10 White Blood Count 9.5 K/UL (4.8-10.8) Red Blood Count 3.77 M/UL (4.70-6.10) L Hemoglobin 12.0 G/DL (14.2-18.0) L Hematocrit 36.0 % (42.0-52.0) L Mean Corpuscular Volume 95 FL (80-99) Mean Corpuscular Hemoglobin 31.8 PG (27.0-31.0) H Mean Corpuscular Hemoglobin Concent 33.4 G/DL (32.0-36.0) Red Cell Distribution Width 11.6 % (11.6-14.8) Platelet Count 115 K/UL (150-450) L Mean Platelet Volume 8.2 FL (6.5-10.1) Neutrophils (%) (Auto) 66.2 % (45.0-75.0) Lymphocytes (%) (Auto) 23.7 % (20.0-45.0) Monocytes (%) (Auto) 8.3 % (1.0-10.0) Eosinophils (%) (Auto) 1.6 % (0.0-3.0) Basophils (%) (Auto) 0.3 % (0.0-2.0) Sodium Level 143 MMOL/L (136-145) Potassium Level 4.7 MMOL/L (3.5-5.1) Chloride Level 113 MMOL/L (98-107) H Carbon Dioxide Level 23 MMOL/L (21-32) Anion Gap 7 mmol/L (5-15) Blood Urea Nitrogen 29 mg/dL (7-18) H Creatinine 2.6 MG/DL (0.55-1.30) H Estimat Glomerular Filtration Rate mL/min (>60) Glucose Level 129 MG/DL (74-106) H Hemoglobin A1c 5.8 % (4.3-6.0) Calcium Level 8.1 MG/DL (8.5-10.1) L Total Bilirubin 0.4 MG/DL (0.2-1.0) Aspartate Amino Transf (AST/SGOT) 23 U/L (15-37) Alanine Aminotransferase (ALT/SGPT) 35 U/L (12-78) Alkaline Phosphatase 185 U/L (46-116) H Total Protein 5.7 G/DL (6.4-8.2) L Albumin 2.9 G/DL (3.4-5.0) L Globulin 2.8 g/dL Albumin/Globulin Ratio 1.0 (1.0-2.7) Height (Feet): 5 Height (Inches): 11.00 Weight (Pounds): 140 Medications Current Medications Medications (Trade) Dose Ordered Sig/Corona Route PRN Reason Start Time Stop Time Status Last Admin Dose Admin Acetaminophen (Tylenol) 650 mg Q4H PRN ORAL Mild Pain/Temp > 100.5 03/11/19 22:45 04/10/19 22:44 Dextrose (Dextrose 50%) 25 ml Q30M PRN IV Hypoglycemia 03/11/19 22:45 04/10/19 22:44 Dextrose (Dextrose 50%) 50 ml Q30M PRN IV Hypoglycemia 03/11/19 22:45 04/10/19 22:44 Docusate Sodium (Colace) 100 mg TWICE A DAY PRN ORAL CONSTIPATION 03/11/19 22:45 04/10/19 22:44 Heparin Sodium (Porcine) (Heparin 5000 units/ml) 5,000 units EVERY 12 HOURS SUBQ 03/12/19 10:00 04/11/19 09:59 Insulin Aspart (NovoLOG) BEFORE MEALS AND HS SUBQ 03/12/19 06:30 04/11/19 06:29 Ondansetron HCl (Zofran) 4 mg Q6H PRN IVP Nausea & Vomiting 03/11/19 22:45 04/10/19 22:44 Sodium Chloride 1,000 ml @ 75 mls/hr [id number] IV 03/11/19 22:45 04/10/19 22:44 03/13/19 01:54 Assessment/Plan Diagnosis [place] I: #SUGEY on possible CKD- r/o ATN # possible baseline diabetic nephropathy #Hypernatremia #volume depletion #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 Mar 13, 2019 13:26
--- NOTE | 2019-03-13 15:21 | Cardiology Report ---
APPROVED REPORT EKG Measurement Heart [id number] Normal sinus rhythm Normal ECG
[2019-03-13 16:00] VITALS: BP 121/60
--- NOTE | 2019-03-13 19:40 | NUR ---
HAND-OFF: Report given to LEI Castillo. Pt. in stable condition. Plan of care endorsed.
--- NOTE | 2019-03-13 19:41 | NUR ---
NURSE NOTES: Received patient awake lying in semi newman's; resting comfortably. A/O x 4. Denies pain at this time. No signs of acute cardiorespiratory distress noted. Checked IV site and flushed. No erythema, bleeding or infiltration noted. Bed at lowest position, brakes on, siderails x3. Call light within reach. Will continue to monitor.
[2019-03-13 20:00] VITALS: BP 107/56
--- NOTE | 2019-03-13 23:57 | NUR ---
NURSE NOTES: Patient verbalized, "I want my IV to be removed because I want to go out. I don't need it anymore. I'm not dehydrated. I want to have my eye surgery done." Explained risks and benefits x 3. Patient still insisted that he wants to go out. Charge nurse intervene explained risks and benefits x3. Will continue to monitor.
--- NOTE | 2019-03-14 00:47 | NUR ---
NURSE NOTES: Patient is asleep, resting comfortably. No significant change of condition noted. Will continue to monitor.
[2019-03-14 04:00] VITALS: BP 111/61
--- NOTE | 2019-03-14 04:30 | NUR ---
NURSE NOTES: Patient still refuses his IV fluids. Explained risk and benefits x 3. outpatient coding specialist made aware.
--- NOTE | 2019-03-14 06:00 | NUR ---
NURSE NOTES: Patient refused labs to be drawn. He stated that "I refused everything." Also, patient refused his linen to be changed. Explained the risk and benefits x3. rn transition aware. Will continue to monitor.
--- NOTE | 2019-03-14 06:15 | NUR ---
NURSE NOTES: Patient refuses his blood sugar to be taken. He stated, "I don't need it and I don't want my insulin." Explained risk and benefits x3. manager research made aware.
[2019-03-14] MEDS: NovoLOG Insulin Flexpen SUBQ SCH ×2 (06:30→11:30)
--- NOTE | 2019-03-14 07:11 | NUR ---
HAND-OFF: Report given to LEI Jaimes. Patient is in stable condition. Plan of care endorsed.
--- NOTE | 2019-03-14 07:20 | NUR ---
NURSE NOTES: Report received from LEI Castillo. Pt. AOx4. In RA. No breathing distress noted. Denies pain. Refused IVF starting around 11pm 03/13/19. Pt. communicated concern regarding missing his eye appointment that was scheduled for today. Will f/u with MD, & CN. IV site intact. Condom cath draining straw color urine. Bed on lowest position, side rails upx2, brakes engaged, alarm on. Call light within easy reach. Pt. "I want to be out of this hospital.......I want to be on the street" Explained DC process, social work case manager to speak with Pt. as well.
[2019-03-14 08:00] VITALS: BP_SYST 109; BP_SYST 119; BP_DIAS 69; BP_DIAS 78
--- NOTE | 2019-03-14 08:05 | NUR ---
NURSE NOTES: Lulú Tarango at [facility] [place] ([phone]), Pt. has been hospitalized since 03/11 and is unable to make it to the appointment that was scheduled. Emelina "Thank you for calling, he can reschedule at his earliest convenience...." Pt. made aware.
[2019-03-14] MEDS ORDERED: Vitamin B12 1000mcg/ml Inj IM SCH (09:00)
--- NOTE | 2019-03-14 09:05 | NUR ---
PT NOTE Received MD order for PT evaluation. Patient previously evaluated by PT on 03/12/19 and was discharged from PT as patient declined further PT intervention. This therapist spoke with Dr. Campbell, notified that patient had been evaluated and discharged by PT. Recommend discharge to SNF once medically cleared by MD for further rehab and safety training as patient lives alone, has impaired vision and has history of falls.
--- NOTE | 2019-03-14 09:16 | General Progress Note ---
Assessment/Plan Problem List: (1) Hypernatremia ICD Codes: E87.0 - Hyperosmolality and hypernatremia SNOMED: 002892208 (2) Frequent falls ICD Codes: R29.6 - Repeated falls SNOMED: 985280972 (3) Cataracts, bilateral ICD Codes: H26.9 - Unspecified cataract SNOMED: 96008867 Qualifiers: Qualified Codes: H26.9 - Unspecified cataract (4) Dehydration ICD Codes: E86.0 - Dehydration SNOMED: 02216644 (5) SUGEY (acute kidney injury) ICD Codes: N17.9 - Acute kidney failure, unspecified SNOMED: 0960118, 66203047 (6) Transaminitis ICD Codes: R74.0 - Nonspecific elevation of levels of transaminase and lactic acid dehydrogenase [LDH] SNOMED: 493720106, 723457524 (7) Thrombocytopenia ICD Codes: D69.6 - Thrombocytopenia, unspecified SNOMED: 065823111 (8) B12 deficiency ICD Codes: E53.8 - Deficiency of other specified B group vitamins SNOMED: 645395400 Status: stable Assessment/Plan: 73 year old male, with severe cataracts, poor vision, and frequent falls, found down, admitted for dehydration, hypernatremia, SUGEY possibly on CKD, transaminitis and thrombocytopenia. Unsafe discharge due to frequent falls and severe bilateral cataracts 1.Hypernatremia and dehydration. Resolved. Refused labs Continue 1/2 NS At 75 ml/hr Monitor serum sodium 2. SUGEY vs SUGEY on preexisting CKD. Refusing labs Monitor serum creatinine. urine lytes, albumin, creatinine, and renal US and nephrology consult. Creatinine remains without improvement 3. Transaminitis- mild. Resolved 4. Thrombocytopenia-DC hepatin. ? Due to B2 deficiency and nutritional. Refuse dlabs 5. Frequent falls: Due to cataracts. CT head negative PT evaluation SNF on disposition Check vitamin D levels 6. Mild leukocytosis- Likely reactive. no sign of infection 7. Vitamin b12 deficiency. Start 1000mcg IM daily for 7 days. then weekly. Refusing injection Code: full code Disposition: SNF Diet: Cardiac DVT pxx; subq heparin , scd boots GI ppx; none I spent 40 minutes on this encounter. 50% spent on counselling and care coordination. Time of this note may not reflect time of encounter. Subjective Date patient seen: Mar 14, 2019 ROS Limited/Unobtainable: No Constitutional: Denies: no symptoms, chills, diaphoresis, fever, malaise, weakness, other HEENT: Denies: no symptoms, eye pain, blurred vision, tearing, double vision, ear pain, ear discharge, nose pain, nose congestion, throat pain, throat swelling, mouth pain, mouth swelling, other Cardiovascular: Denies: no symptoms, chest pain, edema, irregular heart rate, lightheadedness, palpitations, syncope, other Respiratory: Denies: no symptoms, cough, orthopnea, shortness of breath, SOB with excertion, SOB at rest, sputum, stridor, wheezing, other Gastrointestinal/Abdominal: Denies: no symptoms, abdomen distended, abdominal pain, black stools, tarry stools, blood in stool, constipated, diarrhea, difficulty swallowing, nausea, poor appetite, poor fluid intake, rectal bleeding , vomiting, other Endocrine: Denies: no symptoms, excessive sweating, flushing, intolerance to cold, intolerance to heat, increased hunger, increased thirst, increased urine, unexplained weight gain, unexplained weight loss, other Hematologic/Lymphatic: Denies: no symptoms, anemia, easy bleeding, easy bruising, other Allergies: Coded Allergies: No Known Allergies (Unverified , 03/11/19) Subjective seen and examined at bedside. agitated Refused labs Concerned about eye appt today Refused vitamin b12 injection Objective Last 24 Hour Vital Signs Date Time Temp Pulse Resp B/P (MAP) Pulse Ox O2 Delivery O2 Flow Rate FiO2 03/14/19 08:00 98.1 85 20 109/69 (82) 98 03/14/19 04:00 98.2 87 19 111/61 (78) 95 03/14/19 04:00 78 03/14/19 00:00 77 03/13/19 21:00 Room Air 03/13/19 20:00 75 03/13/19 20:00 98.0 78 19 107/56 (73) 97 03/13/19 16:00 97.8 87 20 121/60 (80) 100 03/13/19 16:00 79 03/13/19 12:00 97.6 88 20 114/65 (81) 97 03/13/19 12:00 94 Intake and Output 03/13/19 03/14/19 19:00 07:00 Intake Total 240 ml 456.25 ml Output Total 800 ml 650 ml Balance -560 ml -193.75 ml Intake Oral 240 ml 100 ml IV Total 356.25 ml Output Urine Total 800 ml 650 ml Stool Total 0 ml # Voids 6 # Bowel Movements 6 Laboratory Tests 03/13/19 18:00: Urine Random Total Protein 32H, Urine Random Sodium 91, Urine Creatinine 57.4 Height (Feet): 5 Height (Inches): 11.00 Weight (Pounds): 140 Objective General Appearance: no apparent distress, alert and awake, foul smelling HEENT: normocephalic, atraumatic, bilateral eyes: severe cataracts Neck: full range of motion, supple, no jvd Respiratory: chest non-tender, lungs clear, normal breath sounds, speaking full sentences Cardiovascular: regular rate, rhythm, no m/r/g, intact pulses, no edema Gastrointestinal: normal bowel sounds, non tender, soft, non-distended, no guarding, no rebound Genitourinary: no CVA tenderness Musculoskeletal: normal range of motion Neurologic: alert, oriented x3, responsive, motor strength/tone normal, sensory intact, speech normal, gait normal, reflexes normal Psychiatric: judgement/insight normal Skin: no rash or ulcers Anselmo Campbell M.D. Mar 14, 2019 09:16
[2019-03-14 09:32] LABS: ANION GAP 8 mmol/L (5-15); BLOOD UREA NITROGEN 35 mg/dL (7-18); CALCIUM 7.9 MG/DL (8.5-10.1); CARBON DIOXIDE 21 MMOL/L (21-32); CHLORIDE 112 MMOL/L (98-107); CREATININE 2.4 MG/DL (0.55-1.30); POTASSIUM 4.4 MMOL/L (3.5-5.1); SODIUM 141 MMOL/L (136-145)
--- NOTE | 2019-03-14 09:32 | NUR ---
CASE MANAGEMENT:REVIEW 73 YR OLD MALE BIBA FROM HOME SI: DEHYDRATION. RENAL INSUFF. UNSTEADY GAIT. HYPERNATREMIA 98.3 96 18 137/86 98% ON RA NA+147 BUN+31 CR+2.4 CA-7.8 IS: 1L NS BOLUS 500CC NS BOLUS CT HEAD : TO TELEMETRY DCP: FROM HOME INTERQUAL CRITERIA MET
[2019-03-14 09:40] LABS: IRON 41 ug/dL (50-175); TOTAL IRON BINDING CAPACITY 191 ug/dL (250-450)
[2019-03-14 09:41] LABS: % IRON SATURATION 21 % (15-50)
--- NOTE | 2019-03-14 09:46 | NUR ---
DISCHARGE PLANNING REFERRED TO: [facility] T: [phone] F: [phone]
[2019-03-14 10:07] LABS: CREATINE KINASE 39 U/L (26-308)
[2019-03-14 12:00] VITALS: BP 106/67
--- NOTE | 2019-03-14 12:03 | Nephrology Progress Note ---
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 - continue 1/2NS at 75cc while inpatient - check BMP In SNF in 3-5 days - avoid nephrotoxins - monitor I&Os - daily weights - monitor UOP Subjective Interval Events/Complaints Cr 2.4 insisting that he wants to be discharged today Constitutional: Denies: no symptoms, chills, diaphoresis, fever, malaise, weakness, other HEENT: Denies: no symptoms, eye pain, blurred vision, tearing, double vision, ear pain, ear discharge, nose pain, nose congestion, throat pain, throat swelling, mouth pain, mouth swelling, other Genitourinary: Denies: no symptoms, burning, discharge, frequency, flank pain, hematuria, incontinence, pain, urgency, other Neurologic/Psychiatric: Denies: no symptoms, anxiety, depressed, emotional problems, headache, numbness, paresthesia, pre-existing deficit, seizure, tingling, tremors, weakness, other Objective Objective Last 24 Hour Vital Signs Date Time Temp Pulse Resp B/P (MAP) Pulse Ox O2 Delivery O2 Flow Rate FiO2 03/14/19 09:00 Room Air 03/14/19 08:00 85 03/14/19 08:00 98.1 85 20 109/69 (82) 98 03/14/19 04:00 98.2 87 19 111/61 (78) 95 03/14/19 04:00 78 03/14/19 00:00 77 03/13/19 21:00 Room Air 03/13/19 20:00 75 03/13/19 20:00 98.0 78 19 107/56 (73) 97 03/13/19 16:00 97.8 87 20 121/60 (80) 100 03/13/19 16:00 79 Intake and Output 03/13/19 03/14/19 19:00 07:00 Intake Total 240 ml 456.25 ml Output Total 800 ml 650 ml Balance -560 ml -193.75 ml Intake Oral 240 ml 100 ml IV Total 356.25 ml Output Urine Total 800 ml 650 ml Stool Total 0 ml # Voids 6 # Bowel Movements 6 Laboratory Tests 03/13/19 18:00: Urine Random Total Protein 32H, Urine Random Sodium 91, Urine Creatinine 57.4 03/14/19 09:00: Sodium Level 141, Potassium Level 4.4, Chloride Level 112H, Carbon Dioxide Level 21, Anion Gap 8, Blood Urea Nitrogen 35H, Creatinine 2.4H, Estimat Glomerular Filtration Rate , Glucose Level 116H, Calcium Level 7.9L, Calcium ( Send out) [Pending], Iron Level 41L, Total Iron Binding Capacity 191L, Percent Iron Saturation 21, Unsaturated Iron Binding 150, Total Creatine Kinase 39, Parathyroid Hormone (Intact) [Pending] Height (Feet): 5 Height (Inches): 11.00 Weight (Pounds): 140 Objective General Appearance: WD/WN, no apparent distress HEENT: normocephalic, atraumatic, other - + bilateral cataracts Neck: non-tender, normal alignment Respiratory/Chest: chest wall non-tender, lungs clear, normal breath sounds Cardiovascular/Chest: normal peripheral pulses, normal rate, regular rhythm Abdomen: normal bowel sounds, non tender, soft Extremities: normal range of motion, non-tender, normal inspection 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 Mar 14, 2019 12:03
[2019-03-14] MEDS ORDERED: COLACE100 MG ORAL (12:54)
[2019-03-14] MEDS ORDERED: ACETAMINOPHEN325 M1 ORAL (12:54)
[2019-03-14] MEDS ORDERED: CYANOCOBAL1000 MCG/M IM (12:54)
[2019-03-14] MEDS ORDERED: FEOSOL325 MG ORAL (12:54)
--- NOTE | 2019-03-14 12:57 | Discharge Instructions ---
Discharge Instructions Discharge Instructions Services at Discharge: physical therapy Diet: 2 GM sodium (low sodium) Resume Normal Activity?: Yes Activity: ambulate w/ assist only Follow Up Orders Repeat bmp in 3 days to follow renal function For Congestive Heart Failure Reminder Report to your physician any weight gain of 5 pounds or more in one week. Anselmo Campbell M.D. Mar 14, 2019 12:57
--- NOTE | 2019-03-14 13:08 | Discharge Summary ---
Discharge Summary Hospital Course Date of Admission Mar 11, 2019 at 19:59 Date of Discharge 03/14/2019 Admitting Diagnosis dehydration, renal insufficiency, unsteady gait HPI Alexx Moreno is a 73 year old male who was admitted on Mar 11, 2019 at 19: 59 for Dehydration, Renal Insufficiency, Unsteady Gait Consultations Nephrology: Dr. Ash Gan Procedures Head CT, EKG Hospital Course 73 year old male, with severe cataracts, poor vision, and frequent falls, found down, admitted for dehydration, hypernatremia, SUGEY possibly on CKD, transaminitis and thrombocytopenia. Unsafe discharge due to frequent falls and severe bilateral cataracts. He was managed for the followin.Hypernatremia and dehydration. Resolved. 2. SUGEY vs SUGEY on preexisting CKD, ?ATN. Nephrology consult with Dr. Gan. Cr stable. Will need repeat BMP in 3 days and follow up with DR. Atkinson. Patient refused renal US while in the hospital. 3. Transaminitis- mild. Resolved 4. Thrombocytopenia-DC hepatin. ? Due to B2 deficiency and nutritional. plt count stable 5. Frequent falls: Due to cataracts. CT head negative. CK 39. PT evaluation. SNF on disposition 6. Mild leukocytosis- Likely reactive. no sign of infection. Resolved 7. Vitamin b12 deficiency. Start 1000mcg IM daily for 7 days. then weekly. 8. Iron deficiency anemia. Started on iron tabs. outpatient colonoscopy. 9. Bilateral cataracts. Legally blind. Needs evaluation by ophthalmology and cataract surgery. 10. 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 50% spent on counselling and care coordination. Discharge Medications New Medications: Acetaminophen* (Acetaminophen 325MG Tablet*) 325 Mg Tablet 650 MG ORAL Q4H PRN for 30 Days, #30 TAB Cyanocobalamin (Cyanocobalamin Injection) 1,000 Mcg/1 Ml Vial 1000 MCG IM DAILY for 7 Days, #7 VIAL Docusate Sodium* (Colace*) 100 Mg Capsule 100 MG ORAL TWICE A DAY PRN for 30 Days, #60 CAP Ferrous Sulfate (Feosol) 325 Mg Tablet 325 MG ORAL THREE TIMES A DAY for 30 Days, #90 TAB Discontinued Medications: No Known Medications* (NKM - No Known Medications*) . 0 ., 0 Refills Discharge Condition Upon Discharge: stable Discharge Disposition Patient was discharged to [facility] Discharge Diagnoses: (1) Iron deficiency anemia (2) B12 deficiency (3) Hypernatremia (4) Frequent falls (5) Cataracts, bilateral (6) Dehydration (7) SUGEY (acute kidney injury) (8) Transaminitis (9) Thrombocytopenia Discharge Instructions Discharge Instructions Services Upon Discharge: physical therapy Activity: ambulate w/ assist only Anselmo Campbell M.D. Mar 14, 2019 13:08
--- NOTE | 2019-03-14 14:19 | NUR ---
Social Service Note KEVIN spoke with patient's friend Kristine Mccabe [phone]. Kristine has been patient's friend for several years. Patient has never been , no children and immediate family have past away. Kristine lives in [place], speaks to patient on the phone daily and visit about once a month. Kristine states patient's friend Lorrie Coronelliliana [phone] visits patient often. KEVIN spoke with Lorrie who states she visits patient about twice a week, shops for patient and takes him to scheduled appointments. Lorrie is able to provide additional visits if needed. Per Lorrie patient received medical clearance from PCP Dr. Gomez a week ago for cataract surgery. Due to patient's hospitalization patient was unable to go to schedule appointment at the [facility]. KEVIN called an rescheduled appointment for ThursdayMar 16 at 1:40pm. Patient has now agreed to SNF placement. CM has made arrangement for placement at [facility]. KEVIN provided Lorrie discharge location and phone number. Lorrie will provide transportation to patient to appointment. Will continue to be available as needed.
--- NOTE | 2019-03-14 14:55 | NUR ---
DISCHARGE NOTE: VS stable with BP 109/72, P 84, RR 20, O2 99, T 97.6. Denies any pain or SOB. Discharge instructions given. Discharge teaching done. Pt. excited to go to eye appointment as scheduled. Have agreed to go to SNF in the meantime. IV removed, intact, site covered. Name band removed. alarm security or surveillance monitor removed. Belongings checked with Pt. and ambulance personnel. Singed by ambulance personnel. Report given to Ambulance personnel as well as Zahira at [facility]. Pt left floor safely accompanied by Ambulance personnel.
== END 2019-03-14 16:27 | DRG 640 ==
LOC: EDBD 17:06 → EMR 17:45 → EDBEDREQ 19:53 → 2E 19:59
DX: E87.0 Hyperosmolality and hypernatremia (principal); N17.0 Acute kidney failure with tubular necrosis; E86.0 Dehydration; R53.1 Weakness; E11.21 Type 2 diabetes mellitus with diabetic nephropathy; H26.9 Unspecified cataract; H54.8 Legal blindness, as defined in USA; R29.6 Repeated falls; R74.0 Nonspecific elevation of levels of transaminase and lactic acid dehydrogenase [LDH]; D69.6 Thrombocytopenia, unspecified; N18.9 Chronic kidney disease, unspecified; E53.8 Deficiency of other specified B group vitamins; D50.9 Iron deficiency anemia, unspecified; E11.22 Type 2 diabetes mellitus with diabetic chronic kidney disease; I12.9 Hypertensive chronic kidney disease with stage 1 through stage 4 chronic kidney disease, or unspecified chronic kidney disease
CPT/HCPCS: 36415; 70450; 80048; 80053; 80307; 80329; 81003; 82044; 82306; 82550; 82570; 82607; 82746; 82962; 83036; 83540; 83550; 83735; 83970; 84100; 84300; 84443; 85007; 85025; 87086; 93005; 96360; 99285; J1815

== ENCOUNTER 2019-04-21 17:20 | Inpatient (IN) | payer MEDICARE ==
[~2019-04-21] VITALS: Ht 177.8 cm; Wt 72.6 kg
[~2019-04-21 17:20] MED LIST: ACETAMINOPHEN325 M1 ORAL; COLACE100 MG ORAL; CYANOCOBAL1000 MCG/M IM; FEOSOL325 MG ORAL; NKM
--- NOTE | 2019-04-21 17:45 | NUR ---
ED Nurse Note:pt. was brought in for suisidal threats he was making to his legal department manager if gets kicked out of apartment, he is A/Ox4 ambulatory, personal belongings placed in locker#3, called superviser to put pt's walet with romano in hospital safe
--- NOTE | 2019-04-21 17:57 | NUR ---
ED Nurse Note:blood and urine sent to labs
--- NOTE | 2019-04-21 17:57 | NUR ---
ED Nurse Note:pt. denided SI- he was just angry about his surgery getting cancelled and apartment situation, no plan at all present
[2019-04-21 17:59] VITALS: BP 134/80
[2019-04-21 18:29] LABS: BASOPHILS % (AUTO) 0.4 % (0.0-2.0); EOSINOPHILS % (AUTO) 1.2 % (0.0-3.0); HEMATOCRIT 36.9 % (42.0-52.0); HEMOGLOBIN 12.6 G/DL (14.2-18.0); LYMPHOCYTES % (AUTO) 24.8 % (20.0-45.0); MEAN CORPUSCULAR VOLUME 93 FL (80-99); MONOCYTES % (AUTO) 8.1 % (1.0-10.0); NEUTROPHILS % (AUTO) 65.5 % (45.0-75.0); PLATELET COUNT 144 K/UL (150-450); RED BLOOD COUNT 3.98 M/UL (4.70-6.10); RED CELL DISTRIBUTION WIDTH 11.3 % (11.6-14.8); WHITE BLOOD COUNT 9.6 K/UL (4.8-10.8)
[2019-04-21 18:32] LABS: APPEARANCE,URINE CLEAR; BILIRUBIN, URINE NEGATIVE (NEGATIVE); GLUCOSE, URINE (UA) 1+ (NEGATIVE); KETONES,URINE NEGATIVE (NEGATIVE); LEUKOCYTE ESTERASE ,URINE NEGATIVE (NEGATIVE); NITRITE,URINE NEGATIVE (NEGATIVE); PH,URINE 6 (4.5-8.0); PROTEIN,URINE 2+ (NEGATIVE); UROBILINOGEN,URINE 1 MG/DL (0.0-1.0)
[2019-04-21 18:41] LABS: COLOR,URINE YELLOW
[2019-04-21 18:42] LABS: ANION GAP 8 mmol/L (5-15); BLOOD UREA NITROGEN 29 mg/dL (7-18); CALCIUM 7.2 MG/DL (8.5-10.1); CARBON DIOXIDE 25 MMOL/L (21-32); CHLORIDE 110 MMOL/L (98-107); CREATININE 2.3 MG/DL (0.55-1.30); POTASSIUM 3.6 MMOL/L (3.5-5.1); SODIUM 143 MMOL/L (136-145)
[2019-04-21 18:48] LABS: ALANINE AMINOTRANSFERASE 25 U/L (12-78); ALBUMIN 3.1 G/DL (3.4-5.0); ALKALINE PHOSPHATASE 192 U/L (46-116); ASPARTATE AMINO TRANSFERASE 21 U/L (15-37); BILIRUBIN,TOTAL 0.5 MG/DL (0.2-1.0)
--- NOTE | 2019-04-21 19:00 | NUR ---
ED Nurse Note: Patient is resting comfortably with no complaints at this time.
--- NOTE | 2019-04-21 19:22 | NUR ---
ED Nurse Note: Patient tolerated IV start at right forearm well. Normal saline 1000ml running at this time.
--- NOTE | 2019-04-21 20:22 | NUR ---
ED Nurse Note: Patient tolerated fluids well. Patient continues to void. Patient exhibits cooperative spirit and verbalizes that he was not serious about hurting himself earlier but admits to verbalizing that intent when he was upset about a number of things. Patient appears calm and is A&Ox4. Will continue to monitor.
--- NOTE | 2019-04-21 20:23 | Emergency Room Report ---
History of Present Illness General Chief Complaint: Suicidal Present Illness HPI 73-year-old male with history of type 2 diabetes and SUGEY currently not taking any medication brought in by [employer] and paramedics after eliciting thoughts of hurting himself. Was to have cataract surgery today however the anesthesiologist decided not to operate on him due to low hygiene's, patient then went home and as he was frustrated he started shouting-out that he rather . He was then put on a 5150 hold by [employer]. Patient does not elicit any thoughts of hurting himself or hurting anybody else. Reports that he understands that he has been and then emotional state that he made the wrong decision of making a comment about hurting himself. However denies any suicidal homicidal ideation at this time. Reports that he does not own any firearms. Reports that he has a history of diabetes and acute kidney injury however stopped taking his medication on his own a year ago and has been feeling better. Patient has bilateral cataract and was supposed to be operated on one eye today. Denies chest pain, shortness of breath, palpitation, headache and dizziness. Denies visual and auditory hallucination. Denies lack of sleep, changes of appetite. Patient is stable with stable vital signs. (Joseph Oglesby) Allergies: Coded Allergies: No Known Allergies (Unverified , 03/11/19) Patient History Past Medical History: see triage record Past Surgical History: unable to obtain Family History: none Immunizations: UTD Reviewed Nursing Documentation: PMH: Agreed; PSxH: Agreed (Joseph Oglesby) Nursing Documentation-PMH Hx Cardiac Problems: Yes Hx Hypertension: Yes Hx Diabetes: Yes - Type 2 diabetes Hx Cancer: No Hx Gastrointestinal Problems: No Hx Neurological Problems: No (Joseph Oglesby) Review of Systems All Other Systems: negative except mentioned in HPI (Joseph Oglesby) Physical Exam Vital Signs Date Time Temp Pulse Resp B/P (MAP) Pulse Ox O2 Delivery O2 Flow Rate FiO2 04/21/19 17:15 98.2 90 20 134/80 (98) 98 Room Air Sp02 EP Interpretation: reviewed, normal General Appearance: alert/responsive, no apparent distress, GCS 15, non-toxic Head: atraumatic Eyes: PERRL, lids + conjunctiva normal ENT: hearing intact, no angioedema Neck: supple/symm/no masses, no meningismus Respiratory: effort normal, no wheezing, chest symmetrical Gastrointestinal: non-tender, no mass Musculoskeletal: normal inspection, gait & station normal Neurologic: normal inspection, CN II-XII intact Psychiatric: judgment & insight normal, mood normal, no suicidal/homicidal ideation Skin: normal inspection, no rash Lymphatic: normal inspection, normal cervical nodes (Joseph Oglesby) Procedures Critical Care Time Critical Care Time Critical care: 70 minutes for multiple re-evaluations multiple repeat examinations, continued complaints, and disruptive behavior requiring repeat bedside exam, concern for danger to self not including any procedural time (Meghan Bell DO) Medical Decision Making PA Attestation All my diagnosis and treatment plans were reviewed ad discussed with my supervising physician Dr. Lopez (Joseph Oglesby) Diagnostic Impression: Primary Impression: SUGEY (acute kidney injury) Additional Impression: Suicidal ideation ER Course 73-year-old male with history of type 2 diabetes and SUGEY currently not taking any medication brought in by [employer] and paramedics after eliciting thoughts of hurting himself. Was to have cataract surgery today however the anesthesiologist decided not to operate on him due to low hygiene's, patient then went home and as he was frustrated he started shouting-out that he rather . He was then put on a 5150 hold by [employer]. Patient does not elicit any thoughts of hurting himself or hurting anybody else. Reports that he understands that he has been and then emotional state that he made the wrong decision of making a comment about hurting himself. However denies any suicidal homicidal ideation at this time. Reports that he does not own any firearms. Reports that he has a history of diabetes and acute kidney injury however stopped taking his medication on his own a year ago and has been feeling better. Patient has bilateral cataract and was supposed to be operated on one eye today. Denies chest pain, shortness of breath, palpitation, headache and dizziness. Denies visual and auditory hallucination. Denies lack of sleep, changes of appetite. Patient is stable with stable vital signs. Ddx considered but are not limited to: generalized anxiety disorder, panic attack, depression with psychotic feature, bipolar disorder, drug overdose Vital signs: are WNL, pt. is afebrile H&PE are most consistent with: Suicidal ideation ORDERS: Psychiatric order set ED INTERVENTIONS: NS bolus Patient was transferred with diagnosis of suicidal ideation and being on a [address] under supervision of DrChavez: Jessica pt stable at time of transfer. Patient had elevated blood sugar as well as elevated BUN and creatinine however is medically cleared to be transferred as patient does not elicit any pain. (Joseph Oglesby) ER Course Please refer to the initial note for the initial history exam and presentation Patient has been in the emergency room over 8 hours multiple attempts of psychiatric placement have been Unsuccessful Patient does also have other underlying medical condition which makes it difficult to fully medically clear at this point Patient further IV hydrated Contact is made with inpatient hospitalist patient will be admitted for further medical Evaluation and care along with psychiatric evaluation at this time patient denies any active suicidal thoughts (Meghan Bell DO) Last Vital Signs Date Time Temp Pulse Resp B/P (MAP) Pulse Ox O2 Delivery O2 Flow Rate FiO2 04/21/19 17:59 90 20 Room Air 04/21/19 17:59 98.2 134/80 98 (Joseph Oglesby) Disposition: ADMITTED INPATIENT Condition: Serious Referrals: NOT CHOSEN IPA/,REFERRING (PCP) Joseph Oglesby Apr 21, 2019 20:23 Meghan Bell DO Apr 22, 2019 03:05
[2019-04-21 20:43] VITALS: BP 104/55
--- NOTE | 2019-04-21 21:25 | NUR ---
ED Nurse Note: Patient resting comfortably, will continue to monitor.
--- NOTE | 2019-04-21 22:32 | NUR ---
ED Nurse Note: Patient is verbalizing intent to go home repeatedly. I consulted with patient about possibilities and presented limits on behavior. Patient is cooperative and willing to negotiate. Will continue to monitor.
--- NOTE | 2019-04-21 23:13 | NUR ---
ED Nurse Note: Patient reports feeling nauseas but refuses any formal treatment. Advised patient to let me know if he changes his mind. Will continue to monitor.
--- NOTE | 2019-04-22 00:13 | NUR ---
ED Nurse Note: Patient in room with eyes open and quiet, no complaints at this time, will continue to monitor.
--- NOTE | 2019-04-22 01:15 | NUR ---
ED Nurse Note: Patient is attempting to go to sleep, eyes are closed. Patient provided with a warm blanket for comfort measures.
[2019-04-22] MEDS ORDERED: LORazepam 1mg tab ORAL PRN (01:30)
--- NOTE | 2019-04-22 02:20 | NUR ---
ED Nurse Note: Patient appears aggitated and expresses want to go home. Patient is threatening to get up and leave, Security contacted for therapeutic support.
--- NOTE | 2019-04-22 03:20 | NUR ---
ED Nurse Note: Patient attempting to climg out of bed. Security contacted as a show of authority. Patient therapeutically coached into cooperation.
--- NOTE | 2019-04-22 03:25 | NUR ---
ED Nurse Note: Patient continually refusing to lie back in bed. Patient verbally and physically threatening to get up and refusing to follow commands. ERMD consulted.
[2019-04-22] MEDS ORDERED: Haloperidol 5mg/ml Inj IM ONE (03:30)
--- NOTE | 2019-04-22 03:45 | NUR ---
ED Nurse Note: Patient tolerated injection well, patient attempting to fall asleep after being repositioned into the bed. Will continue to monitor.
--- NOTE | 2019-04-22 04:35 | NUR ---
ED Nurse Note: Patient resting comfortably, will contiue to monitor.
--- NOTE | 2019-04-22 05:36 | NUR ---
ED Nurse Note: Patient sleeping with no s/s of acute distress. Will continue to monitor.
--- NOTE | 2019-04-22 06:47 | NUR ---
ED Nurse Note: Patient verbalizing discomfort however refuses any medication. Will continue to monitor.
--- NOTE | 2019-04-22 07:33 | NUR ---
NURSE NOTES: RECEIVED PATIENT A/A/OX4, VERBALLY RESPONSIVE. SITTER @ BEDSIDE. APPEARED UPSET AND WANTED TO LEAVE FROM HERE. STATED THAT HE WAS SUPPOSED TO HAVE CATARACT SURGERY BUT IT GOT CANCELLED." DOES NOT WANT TO GIVE REASON WHY. EXPLAINED THE REASON WHY HE IS HERE. PATIENT STATED THAT HE IS BLIND. REASSURED IF HE NEEDS SOMETHING HE VERBALIZE HIS NEEDS. PERSONAL BELONGINGS NOTED, HIS BILLS IN THE SAFE PRIOR COMING UP TO THE UNIT. ADMISSION PROFILE DONE. REFUSED TO PROVIDE PAST MEDICAL HISTORY. PATIENT WAS HERE TWO WEEKS AGO PER PATIENT. SKIN IS INTACT. IV ACCESS PATENT AND INTACT. NO RESP DISTRESS NOTED. DENIES OF PAIN/DISCOMFORT. WILL CONT TO MONITOR. Addendum: 04/22/19 at 0953 by LIZ FARIRS LVN PATIENT ALLOWED STAFF TO PERFORM SKIN ASSESSMENT. THIS AM HE REFUSED AND STATED HE HAS NO OPEN WOUNDS. THOUGH PATIENT SACRUM APPEARED REDNESS AND BILATERAL HEELS ARE ALSO RED. WOUND CARE NURSE PRESENT.
[2019-04-22 08:15] VITALS: BP 109/67
[2019-04-22] MEDS: Heparin 5000 units/ml inj SUBQ SCH ×2 (08:44→20:10)
--- NOTE | 2019-04-22 08:52 | NUR ---
NURSE NOTES: pt awake alert, no distress. no sob. denies plans to hurt himself in any way. sitter at bedside , bed in lowest position, locked. will monitor. call light within reach. Addendum: 04/22/19 at 1028 by FANTA VELASQUEZ RN called and spoke w heavenly Lopez dc sitter since patient was verbalizing "i was just upset my cataract surgery got moved up" [facility] sup also aware
[2019-04-22] MEDS ORDERED: Docusate 100mg cap ORAL SCH (09:00)
--- NOTE | 2019-04-22 10:58 | NUR ---
NURSE NOTES: advised patient to reposition @ least every two hours to maintain skin integrity. patient is blind. Bony prominence. placed optifoam on sacral as prophylactic. As well as bilateral heels. patient is able to follow commands. will cont to monitor.
--- NOTE | 2019-04-22 11:03 | NUR ---
NURSE NOTES: Sitter is discontinued. patient is calm, quiet and able to verbalize needs. denies of suicidal thoughts and quite appreciative. call light is within reach. siderails are up x3. high school social studies teacher present. will cont to monitor.
--- NOTE | 2019-04-22 11:33 | NUR ---
Social Work This Sw received a consult to assist with a home safety evaluation. This Sw met with patient who appears disheveled, has not been taking care of himself (showing poor hygiene, i.e dirty nails, unshaven). Patient remains alert, oriented x4 and making his own decisions. Patient informed this SW that he would like his Cousin, Peña Rasmussen ([phone]) to make decisions for him, if he is no longer able to do so. Patient is requesting DNR/DNI (LEI Izaguirre informed). Patient is blind, lives alone in an apartment, with a ramp and had only friends available prior. Since admission, patient explains he has arranged for caregiver to come daily:"Lorrie": [phone] work. This Sw spoke with "Lorrie", who explains her legal name is: Issac Stack (cell: [phone]). Lorrie explains she plans to visit patient daily and will assist as needed, along with transportation to home, when ready for discharge. Patient remains ambulatory (short distances) and does not use any DME, but does have a wheelchair, as needed. Patient lives alone in apartment with ramp. Patient denied any suicidal/homicidal ideations, along with denied any substance abuse. Patient states he will never go to a group home and planning to discharge to home with caregiver. Home care recommended for home safety evaluation. Caregiver to follow up with assistance as well. No further needs or concerns at this time.
[2019-04-22 11:54] VITALS: BP 110/68
--- NOTE | 2019-04-22 14:34 | Consultation ---
Consult Note Consult Note asked by Dr Morris to eric for renal failure- patient interviewed examined data reviewed Old record reviewed ER note: 73-year-old male with history of type 2 diabetes and SUGEY currently not taking any medication brought in by [employer] and paramedics after eliciting thoughts of hurting himself. Was to have cataract surgery today however the anesthesiologist decided not to operate on him due to low hygiene's, patient then went home and as he was frustrated he started shouting-out that he rather . He was then put on a 5150 hold by [employer]. Patient does not elicit any thoughts of hurting himself or hurting anybody else. Reports that he understands that he has been and then emotional state that he made the wrong decision of making a comment about hurting himself. However denies any suicidal homicidal ideation at this time. Reports that he does not own any firearms. Reports that he has a history of diabetes and acute kidney injury however stopped taking his medication on his own a year ago and has been feeling better. Patient has bilateral cataract and was supposed to be operated on one eye today. Denies chest pain, shortness of breath, palpitation, headache and dizziness. Denies visual and auditory hallucination. Denies lack of sleep, changes of appetite. Patient is stable with stable vital signs. Cr previous admission 2.4 Assessment/Plan CKD- no change in S Cr compared to last possible baseline diabetic nephropathy Hypernatremia ? volume depletion blindness due to cataracts Low B12 and Vit D previously slow hydrate- monitor renal parameters per orders Bernabe Vasquez MD Apr 22, 2019 14:34
--- NOTE | 2019-04-22 14:56 | NUR ---
NURSE NOTES: IVF initiated and infusing per MD order. PVR rendered and 221ml output. patient is verbally responsive. No acute resp distress noted. able to void in the urinal. will cont to monitor.
--- NOTE | 2019-04-22 15:25 | NUR ---
Social Work This SW met with patient who has changed his discharge plan: patient will discharge to home to live with friends (Sakina Skinner: [phone]) for one month. Friends will assist patient with bathing, hygiene, etc, as needed. This Sw spoke to Meghna's sister, Kristine ([phone]) to confirm the plan. Awaiting call back from Meghna Skinner to verify her address. *Contact Meghna Skinner @ [phone] when ready for discharge.
[2019-04-22 16:00] VITALS: BP 112/68
[2019-04-22] MEDS ORDERED: Vitamin D 50,000 units cap ORAL SCH (16:00)
--- NOTE | 2019-04-22 16:45 | Consultation ---
DATE OF CONSULTATION: 04/22/2019 HISTORY OF PRESENT ILLNESS: This is a 73-year-old male with history of diabetes type 2 and SUGEY who has been admitted to the hospital on a 5150. The patient was placed on a 5150 for danger to self. During the evaluation, the patient denied any suicidal or homicidal ideation. The patient in fact has future goal oriented thought process. The patient stated that he is worried about his kidneys. He was told by an physician that he will need dialysis and he may . He was very distraught and had questions about his kidney failure. I encouraged him to speak with primary doctor or the photovoltaic technician. Also I told him if it is acute renal failure and creatinine is not too high, he may recover from temporary dialysis. Initially he did not want to agree to dialysis however now he would like to speak more to photovoltaic technician about that. He was anxious. He did not appear to have any thoughts of ending his life. The patient is denying any depressive symptoms. He looks disheveled and unkempt. He stated that he sleeps "okay" PAST PSYCHIATRY HISTORY: Denies any psychiatric hospitalization. Denies any suicide attempt in the past. PAST MEDICAL HISTORY: Significant for acute kidney injury, thrombocytopenia, B12 deficiency, iron deficiency. ALLERGIES: No known allergies. SUBSTANCE ABUSE HISTORY: No known history of illicit drug use or alcohol. MENTAL STATUS EXAMINATION: The patient is alert and oriented times self, place, and situation. Cooperative. Mood is neutral. Affect is full range. Congruent with mood. Thought process, linear and goal oriented. Thought content, no suicidal or homicidal ideation. Cognition is intact. Insight and judgment is fair. ASSESSMENT: Worley I Major depressive disorder. Worley II Deferred. Worley III As above. Worley IV Low. Worley V 50 PLAN: 1. The patient will be started on Remeron 7.5 mg at bedtime. 2. We will start the patient on Lexapro 10 mg in the morning. 3. Provide the patient with reality orientation and supportive therapy. 4. When the patient medically cleared should be discharged. The patient stated that he has a friend in [place] who will be taking care of him for one month. Albin Fortune M.D. DR: Judah JOB#: [id number] CC: NITHYA
[2019-04-22] MEDS: Docusate 100mg cap ORAL SCH (17:32)
--- NOTE | 2019-04-22 17:36 | Diagnostic Imaging Report ---
Indication: Abnormal renal function Technique: A plantar grayscale and duplex Doppler imaging of the kidneys and bladder Comparison: None Findings: Multiple cysts noted in the kidneys. The renal parenchyma demonstrates increased echogenicity. These cysts may demonstrate peripheral calcification. Proximal right ureter may be slightly dilated. Ureteral jet noted in the bladder which is unremarkable. IMPRESSION: Multiple cysts of the bilateral kidneys. Findings raise question for polycystic kidney disease. Intervening parenchyma is echogenic. Apparent mild hydronephrosis on the right. Some cysts demonstrate thin septa with possible peripheral calcification. Consider further evaluation with CT or MRI to assess for complex cyst. Ideally this study would be a contrast-enhanced exam. If no IV contrast can be given due to renal insufficiency then a noncontrast MRI is preferred.
--- NOTE | 2019-04-22 17:50 | NUR ---
NURSE NOTES: sent urine sample per MD order.
--- NOTE | 2019-04-22 18:26 | History and Physical ---
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 He was to go for cataract surgery yesterday but upon arrival to the surgery center his surgery was canceled because of "poor hygiene. " The patient became very upset and expressed that he wanted to hurt himself. He denied wanting to hurt anybody else. He denies having any plan. He was placed on a 5150 by the [employer] and brought to the ER for further evaluation. The ER the patient had a temperature of 98.2 pulse 90 respirations 20 blood pressure 134/80. His CBC showed mild anemia with a hemoglobin of 12.6. His BMP showed a creatinine of 2.3. Urinalysis and UDS were both negative. Alcohol and aspirin levels were also negative. Patient given Zyprexa and Haldol x1. Past medical history: See HPI Medications: None Surgical history: Hernia repair as a kid Family history: Mother from lung cancer. Father committed suicide Social history: Denies tobacco, alcohol, drug use. Allergies: Coded Allergies: No Known Allergies (Unverified , 03/11/19) Medication History Scheduled Cyanocobalamin (Cyanocobalamin Injection), 1,000 MCG IM DAILY Ferrous Sulfate (Feosol), 325 MG ORAL THREE TIMES A DAY Scheduled PRN Acetaminophen* (Acetaminophen 325MG Tablet*), 650 MG ORAL Q4H PRN Docusate Sodium* (Colace*), 100 MG ORAL TWICE A DAY PRN Patient History Healthcare decision maker Resuscitation status Full Code Advanced Directive on File Review of Systems Constitutional: Denies: see HPI, chills, sweats, fever, malaise, weakness, other Eye: Denies: see HPI, eye pain, blurred vision, tearing, double vision, nose pain, nose congestion, acuity changes, discharge, other ENT: Denies: see HPI, ear pain, ear discharge, nose pain, nose congestion, throat pain, throat swelling, mouth pain, hearing loss, nasal discharge, other Respiratory: Denies: see HPI, cough, orthopnea, shortness of breath, stridor, wheezing, MORALES, sputum, other Cardiovascular: Denies: see HPI, chest pain, edema, palpitations, syncope, PND , other Gastrointestinal: Denies: see HPI, abdominal pain, constipation, diarrhea, nausea, vomiting, melena, hematemesis, other Genitourinary: Denies: see HPI, discharge, dysuria, frequency, hematuria, pain , retention, incontinence, urgency, vag bleed/dc, other Musculoskeletal: Denies: see HPI, back pain, gout, joint pain, joint swelling, muscle pain, muscle stiffness, other Skin: Denies: see HPI, rash, change in color, change in hair/nails, dryness, lesions, other Psychiatric: Denies: see HPI, prior hx, anxiety, depressed feelings, emotional problems, SI, HI, hallucinations, other Neurological: Denies: see HPI, headache, numbness, paresthesia, seizure, tingling, tremors, focal weakness, syncope, dizziness, other Endocrine: Denies: see HPI, excessive sweating, flushing, intolerance to temperature, increased thirst, increased urine, unexplained weight loss, other Hematologic/Lymphatic: Denies: see HPI, anemia, blood clots, easy bleeding, easy bruising, swollen glands, diathesis, other Physical Exam General Appearance: WD/WN, no apparent distress, alert Lines, tubes and drains: peripheral HEENT: normocephalic, atraumatic, other - Cataract seen bilaterally. Pupils equal round reactive to light. 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, no motor/sensory deficits, alert, oriented x 3 Lymphatic: anterior cervical - No lymphadenopathy bilaterally Musculoskeletal: normal muscle bulk, no effusion Last 24 Hour Vital Signs Date Time Temp Pulse Resp B/P (MAP) Pulse Ox O2 Delivery O2 Flow Rate FiO2 04/22/19 16:00 98.2 78 16 112/68 (83) 98 04/22/19 11:54 98.2 83 16 110/68 (82) 100 04/22/19 08:31 Room Air 04/22/19 08:15 98.0 84 16 109/67 (81) 96 04/21/19 20:43 97.6 80 18 104/55 96 Room Air Intake and Output 04/21/19 04/22/19 18:59 06:59 Intake Total 240 ml Balance 240 ml Intake Oral 240 ml # Voids 1 Height (Feet): 5 Height (Inches): 10.00 Weight (Pounds): 160 Medications Current Medications Medications (Trade) Dose Ordered Sig/Corona Route PRN Reason Start Time Stop Time Status Last Admin Dose Admin Acetaminophen (Tylenol) 650 mg Q4H PRN ORAL Mild Pain (Pain Scale 1-3) 04/22/19 01:30 05/22/19 01:29 Dextrose (Dextrose 50%) 25 ml Q30M PRN IV Hypoglycemia 04/22/19 01:30 05/22/19 01:29 Dextrose (Dextrose 50%) 50 ml Q30M PRN IV Hypoglycemia 04/22/19 01:30 05/22/19 01:29 Diphenhydramine HCl (Benadryl) 25 mg Q6H PRN ORAL Itching/Pruritis 04/22/19 01:30 05/22/19 01:29 Docusate Sodium (Colace) 100 mg TID ORAL 04/22/19 18:00 05/22/19 08:59 Ergocalciferol (Drisdol) 50,000 intlu QWEEK ORAL 04/22/19 16:00 05/22/19 15:59 04/22/19 17:30 Escitalopram Oxalate (Lexapro) 10 mg DAILY ORAL 04/23/19 09:00 05/23/19 08:59 Heparin Sodium (Porcine) (Heparin 5000 units/ml) 5,000 units EVERY 12 HOURS SUBQ 04/22/19 09:00 05/22/19 08:59 Lorazepam (Ativan) 1 mg Q4H PRN ORAL For Anxiety 04/22/19 01:30 04/29/19 01:29 Mirtazapine (Remeron) 7.5 mg BEDTIME ORAL 04/22/19 21:00 05/22/19 20:59 Ondansetron HCl (Zofran) 4 mg Q6H PRN IVP Nausea & Vomiting 04/22/19 01:30 05/22/19 01:29 Pantoprazole (Protonix) 40 mg EVERY 12 HOURS ORAL 04/22/19 21:00 05/22/19 20:59 Sodium Chloride 1,000 ml @ 75 mls/hr [id number] IV 04/22/19 14:15 04/23/19 14:14 04/22/19 14:48 Assessment/Plan Problem List: (1) Suicidal ideation ICD Codes: R45.851 - Suicidal ideations SNOMED: 4811030 (2) SUGEY (acute kidney injury) ICD Codes: N17.9 - Acute kidney failure, unspecified SNOMED: 4065723, 79861114 (3) Patient needs psychiatric hold for evaluation ICD Codes: Z00.8 - Encounter for other general examination SNOMED: 081111821 (4) Iron deficiency anemia ICD Codes: D50.9 - Iron deficiency anemia, unspecified SNOMED: 12796417 (5) B12 deficiency ICD Codes: E53.8 - Deficiency of other specified B group vitamins SNOMED: 467430140 (6) Transaminitis ICD Codes: R74.0 - Nonspecific elevation of levels of transaminase and lactic acid dehydrogenase [LDH] SNOMED: 149519763, 693853877 (7) Thrombocytopenia ICD Codes: D69.6 - Thrombocytopenia, unspecified SNOMED: 991580018 (8) Blindness ICD Codes: H54.7 - Unspecified visual loss SNOMED: 932606131 (9) Cataract ICD Codes: H26.9 - Unspecified cataract SNOMED: 588366004 Status: stable Assessment/Plan: This is an 73-year-old male with a past medical history of cataracts and blindness presenting with suicidal ideation. #Suicidal ideation. The patient currently denies having any other further thoughts of suicide. He denies having any plan to commit suicide. He denies any thoughts of hurting anyone else. > UA and UDS negative >ASA and tyelnol levels and etoh levels negative -Continue 5150 -Appreciate psychiatry recommendations: Dr. Fortune -Continue to monitor for signs/symptoms #SUGEY versus CKD -Appreciate nephrology recommendations: Dr. Vasquez -Urine lytes, -renal ultrasound -NS @ 75 cc/hr #Cataracts #blindness 2/2 cataracts -Patient has surgery in 2 weeks -Patient will stay with a friend (gasper Vinson [phone]) in the meantime for the next month to assist with hygiene #elevated alk phos - continue to monitor -No abdominal pain #thrombocytopenia -Continue to monitor -No signs of bleeding FENPPX DVTPPX: Heparin subcu every 12 hours GI PPX: None needed patient eating Fluids: NS @ 75 cc/hr Diet: regular Lines: none PT/OT: none Dispo: home pending psych eval 73 minutes spent on this encounter. Discussed with RN, psychiatry, nephrology, and patient. > 50% spent on counseling and care coordination. Time of note may not reflect time patient was seen. Miguel Hollis D.O. Apr 22, 2019 18:26
--- NOTE | 2019-04-22 19:18 | NUR ---
HAND-OFF: Report given to Lynn.
--- NOTE | 2019-04-22 19:43 | NUR ---
NURSE NOTES: Pt received in bed awake, able to make needs known, uses the urinal at bedside, no c/o pain or signs of distress, will continue to monitor.
[2019-04-22 20:00] VITALS: BP 114/71
--- NOTE | 2019-04-23 05:59 | NUR ---
NURSE NOTES: Approx every 2hrs pt in bed screaming, went to the pt room and he states he wants to leave, wants his belongings and will crawl home if he has to. Went back to the pt room after each encounter and he was sleep. Refused part of his medication earlier on the shift, after being explained the benefits of the medication.
--- NOTE | 2019-04-23 06:19 | NUR ---
NURSE NOTES: Pt refused labs this morning.
--- NOTE | 2019-04-23 07:10 | NUR ---
NURSE NOTES: HANDOFF RECEIVED FROM LEI COLLINS. PATIENT OBSERVED SLEEPING IN BED, NO OBVIOUS SIGNS OF DISTRESS. IV SITE IS CLEAN, DRY AND INTACT, NO FLUIDS RUNNING, PM SHIFT STATED PATIENT WANTED THE IV FLUIDS OFF, WILL ATTEMPT TO RECONNECT WHEN PATIENT WAKES UP OR WILL NOTIFY DR. BENSON IN THE LOW AND LOCKED POSITION WITH CALL LIGHT AT BEDSIDE. WILL CONTINUE TO MONITOR PATIENT.
--- NOTE | 2019-04-23 07:30 | NUR ---
NURSE NOTES: PATIENT RECEIVED FROM LEI COLLINS. PATIENT ALERT AND ORIENTED AND ABLE TO MAKE NEEDS KNOWN. PATIENT OBSERVED SHOUTING THAT HE WANTS TO GO HOME, EXPLAINED THAT THERE IS NO ORDER FROM THE DOCTOR FOR DISCHARGE. PATIENT STATED HE CAN LEAVE AMA, ADVISED PATIENT TO WAIT UNTIL CLEARED BY DOCTOR, PATIENT THEN STATES THAT HE CANNOT GET HOME SO CAN'T SIGN AMA ANYWAY. IV SITE IS CLEAN DRY AND INTACT, SALINE LOCKED. BED IN LOW AND LOCKED POSITION WITH CALL LIGHT WITHIN REACH, PATIENT IS LEGALLY BLINSS
--- NOTE | 2019-04-23 07:46 | NUR ---
HAND-OFF: Report given to LEI Curry.
[2019-04-23 08:00] VITALS: BP 108/62
[2019-04-23] MEDS: Heparin 5000 units/ml inj SUBQ SCH (09:00)
[2019-04-23] MEDS: Docusate 100mg cap ORAL SCH ×2 (09:00→13:00)
[2019-04-23 12:00] VITALS: BP 120/60
--- NOTE | 2019-04-23 14:29 | Discharge Summary ---
Discharge Summary Hospital Course Date of Admission Apr 22, 2019 at 01:05 Date of Discharge 04/23/19 Admitting Diagnosis Suicidal ideation HPI Alexx Moreno is a 73 year old male who was admitted on Apr 22, 2019 Consultations psychiatry renal Procedures none Hospital Course 73 year old male who is legally blind and was BIBA from a surgery center where he was going to have a cataract procedure done. There was a concern about suicidal ideation and he was admitted for observation and seen by Dr. Fortune from psychiatry saw the patient as well. Per psychiatry there was no imminent threat of harm to the patient or to others. He was noted to be cooperative and follow commands without problems. He is legally blind and needs support for ADL' s. Today, he is congruent with his thought process, he is able to tell me without a doubt the phone numbers of his caregivers and support system at home. He is medically stable for discharge home. His creatinine is at baseline and not changed from the past consistent with CKD 3 Arrangements coordinated and ambulance transportation is needed for safety. Discharge Medications Continued Medications: Acetaminophen* (Acetaminophen 325MG Tablet*) 325 Mg Tablet 650 MG ORAL Q4H PRN for 30 Days, #30 TAB Cyanocobalamin (Cyanocobalamin Injection) 1,000 Mcg/1 Ml Vial 1000 MCG IM DAILY for 7 Days, #7 VIAL Docusate Sodium* (Colace*) 100 Mg Capsule 100 MG ORAL TWICE A DAY PRN for 30 Days, #60 CAP Ferrous Sulfate (Feosol) 325 Mg Tablet 325 MG ORAL THREE TIMES A DAY for 30 Days, #90 TAB Discharge Condition Upon Discharge: stable Discharge Disposition Patient was discharged to home Discharge Diagnoses: (1) Blindness (2) Cataract (3) CKD (chronic kidney disease), stage III Patrice Atkinson MD Apr 23, 2019 14:29
--- NOTE | 2019-04-23 15:33 | Nephrology Progress Note ---
Assessment/Plan Problem List: (1) Renal failure (ARF), acute on chronic (2) B12 deficiency (3) SUGEY (acute kidney injury) Assessment CKD- no change in S Cr compared to last possible baseline diabetic nephropathy Hypernatremia ? volume depletion blindness due to cataracts Low B12 and Vit D previously Plan refused lab work- due DC per PMD ! will sign off Subjective ROS Limited/Unobtainable: No Objective Objective Last 24 Hour Vital Signs Date Time Temp Pulse Resp B/P (MAP) Pulse Ox O2 Delivery O2 Flow Rate FiO2 04/23/19 12:00 97.9 86 26 120/60 (80) 96 04/23/19 09:00 Room Air 04/23/19 08:00 97.9 84 24 108/62 (77) 99 04/22/19 21:00 Room Air 04/22/19 20:00 98.0 81 18 114/71 (85) 96 04/22/19 16:00 98.2 78 16 112/68 (83) 98 Intake and Output 04/22/19 04/23/19 19:00 07:00 Intake Total 1145 ml 1175 ml Output Total 900 ml 760 ml Balance 245 ml 415 ml Intake Oral 920 ml 500 ml IV Total 225 ml 675 ml Output Urine Total 900 ml 760 ml # Bowel Movements 1 Laboratory Tests 04/22/19 17:50: Urine Random Sodium 101, Urine Creatinine 31.0 Height (Feet): 5 Height (Inches): 10.00 Weight (Pounds): 160 General Appearance: no apparent distress Cardiovascular: normal rate Respiratory/Chest: lungs clear Abdomen: soft Objective no change Bernabe Vasquez MD Apr 23, 2019 15:33
--- NOTE | 2019-04-23 16:25 | NUR ---
NURSE NOTES: discharge instructions given. possession from the safe given back to the patient with the security present d/t/i and signed by patient. Own medications return to patient. next of kin informed by Leticia WARREN. awaiting for ambulance.
--- NOTE | 2019-04-23 16:46 | NUR ---
NURSE NOTES: PATIENT HAS SACRAL REDNESS NOTED THIS AM. PATIENT IS BEING DISCHARGED SO ATTEMPTED TO TAKE A PHOTO OF THE SACRAL REDNESS BUT PATIENT REFUSED.
[2019-04-23 17:16] VITALS: BP 108/62
--- NOTE | 2019-04-23 17:36 | NUR ---
DISCHARGE NOTE: Pt is discharged home by ambulance Life line in stable condition, accompanied by friends. IV line removed ( no hematoma or inflammation noted). Pt belongings checked, pt received his own meds and $995 given back from hosp. safe. Pt will follow with PCP in 2 weeks. No new prescription given.
--- NOTE | 2019-04-23 17:40 | NUR ---
NURSE NOTES: PATIENT DISCHARGED AND LEFT WITH FAMILY MEMBER AND EMS. IV REMOVED BY MARINE RIGGER. PATIENT LEFT STABLE AND ALERT AND ORIENTED WITH EMS. ID BRACELET REMOVED. PATIENT SIGNED BELONGINGS LIST AND TOOK MEDICATION AND BELONGINGS FROM THE SAFE.
== END 2019-04-23 17:46 | disposition home or self-care (01) | DRG 683 ==
LOC: EDBD 17:20 → EMR 18:00 → 4E 04-22 01:05 → EDBEDREQ 04-22 01:32
DX: N17.9 Acute kidney failure, unspecified (principal); R45.851 Suicidal ideations; E87.0 Hyperosmolality and hypernatremia; F32.9 Major depressive disorder, single episode, unspecified; H54.8 Legal blindness, as defined in USA; H26.9 Unspecified cataract; N18.3 Chronic kidney disease, stage 3 (moderate); D50.9 Iron deficiency anemia, unspecified; E53.8 Deficiency of other specified B group vitamins; R74.0 Nonspecific elevation of levels of transaminase and lactic acid dehydrogenase [LDH]; D69.6 Thrombocytopenia, unspecified; E11.22 Type 2 diabetes mellitus with diabetic chronic kidney disease
CPT/HCPCS: 36415; 76770; 80053; 80307; 81003; 82570; 84300; 85025; 96360; 99291; G0480; J7030

== ENCOUNTER 2020-01-28 09:20 | Emergency (ER) | payer MEDICARE, OTHER ==
[~2020-01-28] VITALS: Ht 180.3 cm; Wt 65.8 kg
[2020-01-28 09:20] VITALS: BP 128/85
--- NOTE | 2020-01-28 09:20 | NUR ---
ED Nurse Note: Pt brought in from street on his way home, when he fell three times. Pt says that he became weak, but he feels he "tripped." Unknown if patient had mechanical fall or pre syncope. EMS reports witnesses saw him try to get up twice and fall again to the floor. Laceration on chin noted. Pt reports no loss of consciousness. Vitals stable as documented. Respirations even and unlabored on room air. A+Ox4, speaking in full sentences.
--- NOTE | 2020-01-28 09:28 | NUR ---
ED Nurse Note: blood sent to lab.
--- NOTE | 2020-01-28 09:52 | NUR ---
ED Nurse Note: Pt en route to CT
[2020-01-28 10:06] LABS: ANION GAP 12 mmol/L (5-15); BLOOD UREA NITROGEN 37 mg/dL (7-18); CALCIUM 7.5 MG/DL (8.5-10.1); CARBON DIOXIDE 21 MMOL/L (21-32); CHLORIDE 109 MMOL/L (98-107); CREATININE 2.5 MG/DL (0.55-1.30); POTASSIUM 4.2 MMOL/L (3.5-5.1); SODIUM 142 MMOL/L (136-145)
--- NOTE | 2020-01-28 10:08 | Emergency Room Report ---
History of Present Illness General Chief Complaint: Multiple Trauma/Fall Source: Patient, EMS (Po Hannon MD) Present Illness HPI 74-year-old male presents status post fall. Brought in by EMS from Street. Patient states he fell near his house. States he believes he tripped but is not sure. Denies LOC. Laceration to chin. Tetanus is up-to-date. Denies pain. States he feels okay at this time. Denies chest pain or shortness of breath. Denies dizziness or weakness. No other aggravating relieving factors. Denies any other associated symptoms (Po Hannon MD) Allergies: Coded Allergies: No Known Allergies (Unverified , 03/11/19) COVID-19 Screening Contact w/high risk pt: No Experienced COVID-19 symptoms?: No COVID-19 Testing performed PICK UP MAN: No (Po Hannon MD) Patient History Past Medical History: DM, HTN Past Surgical History: none Pertinent Family History: none Social History: Denies: smoking, alcohol use, drug use Immunizations: UTD Reviewed Nursing Documentation: PMH: Agreed; PSxH: Agreed (Po Hannon MD) Nursing Documentation-PMH Past Medical History: No Stated History Hx Cardiac Problems: No Hx Hypertension: Yes Hx Diabetes: Yes Hx Cancer: No Hx Gastrointestinal Problems: No Hx Neurological Problems: No (Po Hannon MD) Review of Systems All Other Systems: negative except mentioned in HPI (Po Hannon MD) Physical Exam Vital Signs Date Time Temp Pulse Resp B/P (MAP) Pulse Ox O2 Delivery O2 Flow Rate FiO2 01/28/20 09:13 98.4 89 18 138/80 (99) 99 Room Air Sp02 EP Interpretation: reviewed, normal General Appearance: no apparent distress, alert, GCS 15, non-toxic Head: normocephalic, other - laceration to chin Eyes: bilateral eye normal inspection, bilateral eye PERRL ENT: hearing grossly normal, normal pharynx, no angioedema, normal voice Neck: full range of motion, supple/symm/no masses Respiratory: chest non-tender, lungs clear, normal breath sounds, speaking full sentences Cardiovascular #1: regular rate, rhythm, no edema Cardiovascular #2: 2+ carotid (R), 2+ carotid (L), 2+ radial (R), 2+ radial (L) , 2+ dorsalis pedis (R), 2+ dorsalis pedis (L) Gastrointestinal: normal bowel sounds, non tender, soft, non-distended, no guarding, no rebound Rectal: deferred Genitourinary: normal inspection, no CVA tenderness Musculoskeletal: back normal, normal range of motion, gait/station normal, non- tender Neurologic: alert, motor strength/tone normal, oriented x3, sensory intact, responsive, speech normal Psychiatric: judgement/insight normal, memory normal, mood/affect normal, no suicidal/homicidal ideation Reflexes: 3+ bicep (R), 3+ bicep (L), 3+ tricep (R), 3+ tricep (L), 3+ knee (R) , 3+ knee (L) Skin: laceration - 2cm laceration to chin Lymphatic: no adenopathy (Po Hannon MD) Medical Decision Making Diagnostic Impression: Primary Impression: Traumatic intracranial hemorrhage Additional Impressions: Facial laceration Closed head injury ER Course Patient was signed out to me. Patient had a head injury earlier in the day, had sutures placed by previous physician had a head CT showing a 4 mm hyperdense lesion in the right frontoparietal lobe. Patient refused to be transferred for higher level of care and wishes to sign out AGAINST MEDICAL ADVICE. We did observe the patient for 6 hours in the ER. We did repeat a head CT which showed a stable appearance of the hyperdensity in the frontal lobe. I did assess the patient myself he was alert oriented and neurologically intact and still did not wish to be admitted to the hospital for observation. Did sign out AGAINST MEDICAL ADVICE will return in 1 week for suture removal or sooner for any worsening symptoms. Patient was alert, oriented without signs of intoxication at time of signing out AMA (Ace Jama M.D.) EKG Diagnostic Results Rate: normal Rhythm: NSR ST Segments: no acute changes ASA given to the pt in ED: No (Po Hannon MD) Rhythm Strip Diag. Results EP Interpretation: yes Rhythm: NSR, no PVC's, no ectopy (Po Hannon MD) CT/MRI/US Diagnostic Results CT/MRI/US Diagnostic Results #1: Imaging Test Ordered: CT scan of the brain Impression IMPRESSION: 3-4 mm faint high density focus in subcortical right frontal lobe. Since this is not seen on prior exam, petechial hemorrhage suspected. Recommend short-term followup. No mass effect or midline shift. No acute fractures. CT/MRI/US Diagnostic Results #2: Imaging Test Ordered: CT scan of the brain Impression IMPRESSION: 4 mm hyperdensity right frontoparietal lobe is similar size and less dense than prior study. No new bleed. No mass effect. (Ace Jama M.D.) Last Vital Signs Date Time Temp Pulse Resp B/P (MAP) Pulse Ox O2 Delivery O2 Flow Rate FiO2 01/28/20 09:20 98.2 79 18 128/85 98 Room Air (Po Hannon MD) Disposition: AGAINST MEDICAL ADVICE Referrals: NON PHYSICIAN (PCP) Po Hannon MD Jan 28, 2020 10:08 Ace Jama M.D. Jan 28, 2020 17:28
[2020-01-28 10:15] LABS: BASOPHILS % (AUTO) 0.5 % (0.0-2.0); HEMOGLOBIN 13.1 G/DL (14.2-18.0); LYMPHOCYTES % (AUTO) 22.1 % (20.0-45.0); MEAN CORPUSCULAR VOLUME 98 FL (80-99); MONOCYTES % (AUTO) 5.4 % (1.0-10.0); NEUTROPHILS % (AUTO) 71.1 % (45.0-75.0); PLATELET COUNT 163 K/UL (150-450); RED BLOOD COUNT 3.97 M/UL (4.70-6.10); RED CELL DISTRIBUTION WIDTH 12.6 % (11.6-14.8); WHITE BLOOD COUNT 13.1 K/UL (4.8-10.8)
--- NOTE | 2020-01-28 10:20 | NUR ---
ED Nurse Note: Pt back from CT. Denies pain at this time. No signs of acute distress noted
[2020-01-28 10:28] LABS: ALANINE AMINOTRANSFERASE 23 U/L (12-78); ALBUMIN 3.4 G/DL (3.4-5.0); ALBUMIN/GLOBULIN RATIO 1.1 (1.0-2.7); ALKALINE PHOSPHATASE 241 U/L (46-116); ASPARTATE AMINO TRANSFERASE 23 U/L (15-37); BILIRUBIN,TOTAL 0.5 MG/DL (0.2-1.0)
--- NOTE | 2020-01-28 10:30 | Diagnostic Imaging Report ---
EXAM: XR Chest, 1 View CLINICAL HISTORY: FALL TECHNIQUE: Frontal view of the chest. COMPARISON: No relevant prior studies available. FINDINGS: Lungs: No lung contusions. Pleural space: Unremarkable. No pneumothorax. Heart: Unremarkable. No cardiomegaly. Mediastinum: Unremarkable. Bones/joints: Acute appearing fracture of the distal right clavicle. IMPRESSION: Acute appearing fracture of the distal right clavicle. Correlate with clinical findings. No lung contusions. No radiographic evidence of pneumothorax or pleural effusions.
--- NOTE | 2020-01-28 10:49 | Diagnostic Imaging Report ---
EXAM: CT Head Without Intravenous Contrast CLINICAL HISTORY: FALL TECHNIQUE: Axial computed tomography images of the head/brain without intravenous contrast. CTDI is 53 mGy and DLP is 1099 mGy-cm. One or more of the following dose reduction techniques were used: automated exposure control, adjustment of the mA and/or kV according to patient size, use of iterative reconstruction technique. COMPARISON: March 11, 2019. FINDINGS: Brain: 3-4 mm faint high density focus in the subcortical right frontal lobe, for example on image 15 of series 14, not definitively seen on prior. No mass effect or midline shift. Generalized involutional changes and chronic microangiopathic white matter disease. Ventricles: Unremarkable. No ventriculomegaly. Bones/joints: Unremarkable. No acute fracture. Soft tissues: Unremarkable. Sinuses: Minimal chronic sinus disease. Mastoid air cells: Unremarkable as visualized. No mastoid effusion. IMPRESSION: 3-4 mm faint high density focus in subcortical right frontal lobe. Since this is not seen on prior exam, petechial hemorrhage suspected. Recommend short-term followup. No mass effect or midline shift. No acute fractures. <MYCVCSECTION> Communications: 01/28/20 10:56 Call Doctor Regarding Above results, called Riddhi SIDDIQI on 01/27 10:56 (-07:00)
--- NOTE | 2020-01-28 10:50 | Diagnostic Imaging Report ---
EXAM: CT Maxillofacial Without Intravenous Contrast CLINICAL HISTORY: FALL TECHNIQUE: Axial computed tomography images of the face without intravenous contrast. CTDI is 15 mGy and DLP is 371 mGy-cm. One or more of the following dose reduction techniques were used: automated exposure control, adjustment of the mA and/or kV according to patient size, use of iterative reconstruction technique. COMPARISON: No relevant prior studies available. FINDINGS: Some of the images are degraded by motion. Streak artifacts from dental amalgam. Soft tissue laceration and hematoma in the chin region. No radiopaque foreign body. Grossly, no acute facial or orbital fractures. No orbital hematoma or emphysema. Intact globes. Evidence of prior cataract surgery on the right. Degenerative changes in cervical spine. Visualized paranasal sinuses and mastoid air cells are clear. Small lucent lesion in the C6 vertebral body. IMPRESSION: Soft tissue laceration and hematoma about the chin region. No definite acute fracture. Lucent lesion in the C6 vertebral body. If there is history of prior malignancy, cannot definitively exclude metastatic focus. Recommend followup.
[2020-01-28] MEDS ORDERED: Bacitracin Oint UD TOPIC ONE ×2 (10:56→11:15)
--- NOTE | 2020-01-28 11:04 | NUR ---
ED Nurse Note: chin lac sutures placed by ED MD. Per MD, apply bacitracin and dress wound. Order noted and carried out.
[2020-01-28 11:20] VITALS: BP 134/79
[2020-01-28 12:56] LABS: INR 1.1 (0.9-1.1)
[2020-01-28 13:30] VITALS: BP 131/83
[2020-01-28 15:43] VITALS: BP 124/81
--- NOTE | 2020-01-28 15:44 | NUR ---
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
--- NOTE | 2020-01-28 16:14 | NUR ---
ED Nurse Note:pt. had second ct scan done, wating for results
--- NOTE | 2020-01-28 16:50 | Diagnostic Imaging Report ---
EXAM: CT Head Without Intravenous Contrast CLINICAL HISTORY: TRAUMA TECHNIQUE: Axial computed tomography images of the head/brain without intravenous contrast. CTDI is 53.4 mGy and DLP is 1045 mGy-cm. One or more of the following dose reduction techniques were used: automated exposure control, adjustment of the mA and/or kV according to patient size, use of iterative reconstruction technique. COMPARISON: CT head 01/28/20 958 FINDINGS: Brain: 4 mm hyperdensity right frontoparietal lobe is similar size and less dense than prior study. No hemorrhage. Very mild chronic white matter disease. Mild generalized atrophy. Ventricles: Unremarkable. No ventriculomegaly. Bones/joints: Unremarkable. No acute fracture. Soft tissues: Unremarkable. Sinuses: Unremarkable as visualized. No acute sinusitis. Mastoid air cells: Unremarkable as visualized. No mastoid effusion. Other findings: Mild generalized atrophy. IMPRESSION: 4 mm hyperdensity right frontoparietal lobe is similar size and less dense than prior study. No new bleed. No mass effect.
[2020-01-28 17:15] VITALS: BP 124/81
--- NOTE | 2020-01-28 17:15 | NUR ---
AMA:pt. is A/ox4 ambulatory , signed AMA form SEE AMA FORM.
--- NOTE | 2020-01-28 17:20 | NUR ---
ED Nurse Note:incident report was filed
== END 2020-01-28 17:33 | disposition left against medical advice (07) ==
LOC: EDBD 09:20 → EMR 09:54
DX: S01.81XA Laceration without foreign body of other part of head, initial encounter (principal); S09.90XA Unspecified injury of head, initial encounter; S06.309A Unspecified focal traumatic brain injury with loss of consciousness of unspecified duration, initial encounter; X58.XXXA Exposure to other specified factors, initial encounter; Y92.9 Unspecified place or not applicable; E11.9 Type 2 diabetes mellitus without complications; I10 Essential (primary) hypertension
CPT/HCPCS: 36415; 70450; 70486; 71045; 80053; 83880; 84484; 85025; 85610; 85730; 93005; 96360; 99284